=== PATIENT | male | born 1975 | race Caucasian/White ===

== ENCOUNTER 2016-05-08 01:36 | Emergency (ER) | payer BC, OTHER ==
[~2016-05-08] VITALS: Ht 185.4 cm; Wt 109.0 kg
[2016-05-08 01:40] VITALS: TEMP 36.8; Ht 185.4 cm; Wt 109.0 kg
[2016-05-08 01:53] VITALS: O2SAT 99
[2016-05-08] MEDS ORDERED: SODIUM CHLORIDE 0.9% 1000ML 1,000 ML IV STA (02:09)
[2016-05-08] MEDS ORDERED: ALUMINUM/MAGNESIUM SUSP 30 ML UDC PO STA (02:09)
[2016-05-08] MEDS ORDERED: LIDOCAINE HCL 2% VISC SOLN 20 ML UDC PO STA (02:09)
[2016-05-08] MEDS ORDERED: OPTIRAY 320 IV PRN (02:15)
[2016-05-08 02:20] LABS: BASO % 0.2 %; BASO ABS # 0.03 K/uL (0-0.2); COMPLETE YES; EOS % 0.4 %; HEMATOCRIT 42.9 % (42-52); IG% 0.2 %; LYMPH ABS # 2.53 K/uL (1.2-3.4); MEAN CELL VOLUME 86.1 fL (80-100); MEAN CORPUSCULAR HEMOGLOBIN 31.3 pg (25-34); MEAN CORPUSCULAR HGB CONC 36.4 g/dl (32-36); MEAN PLATELET VOLUME 9.5 fL (7.4-10.4); MONO % 4.9 %; NEUT % 76.3 %; PLATELET COUNT 283 K/uL (130-400); RED BLOOD COUNT 4.98 M/uL (4.7-6.1); WHITE BLOOD COUNT 14.02 K/uL (4.8-10.8)
[2016-05-08] MEDS ORDERED: ATOR10TA88 PO (02:21)
[2016-05-08] MEDS ORDERED: acid reflux med PO (02:23)
[2016-05-08 02:33] LABS: ISTAT CREATININE 0.9 mg/dl (0.6-1.3); ISTAT IONIZED CALCIUM 1.2 mmol/l (1.12-1.32)
[2016-05-08 02:46] LABS: ALT/SGPT 43 U/L (12-78); AST/SGOT 19 U/L (15-37); BLOOD UREA NITROGEN 15 mg/dl (7-18); BUN/CREATININE RATIO 13.7 (10-20); CALCIUM 9.2 mg/dl (8.5-10.1); CARBON DIOXIDE 27 mmol/L (21-32); CHLORIDE 104 mmol/L (98-107); GLUCOSE 108 mg/dl (70-99); POTASSIUM 3.8 mmol/L (3.5-5.1); SODIUM 141 mmol/L (136-145)
[2016-05-08 02:51] LABS: ALKALINE PHOSPHATASE 61 U/L (45-117)
--- NOTE | 2016-05-08 03:41 | EMERGENCY ROOM VISIT NOTE ---
History First contact with patient: 01:53 Chief Complaint: ABDOMINAL PAIN Stated Complaint: CHEST PAINS, ABDOMINAL PAIN Nursing Triage Summary: pt c/o left sided upper abdominal that radiates to back and nausea since 1800. pt denies SOB. pt denies v/d. pt states he ate "care home food" at 1700. pain started after eating. pain radiates from Left upper quad down to left lower quad and into R shoulder. pt denies history of same pain. Hx Reflux. pt moved bowels at 1700 and feels like he needs to go but cannot. History of Present Illness The patient is a 40 year old male who presents to the Emergency Room with complaints of epigastric left upper abdominal pain for the past few hours it as aching, ranging in severity 8 out of 10. Patient complains of nausea without vomiting or diarrhea. Patient does have a history of back reflux. He had meat with gravy and noodles at the care home. 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 Patient denies chest pain, dyspnea, fever, chills, diarrhea, radiating pain, numbness, tingling, weakness. He had an EGD last year that showed Gustafson's esophagitis and hiatal hernia. Review of Systems See HPI for pertinent positives & negatives. A total of 10 systems reviewed and were otherwise negative. Past Medical/Surgical History Acid reflux, hyperlipidemia, Gustafson's esophagitis, hiatal hernia Social History Smoking Status: Never Smoker Smokeless Tobacco Use: No Alcohol Use: occasionally Drug Use: none Marital Status: Housing Status: lives with family Occupation Status: employed Current/Historical Medications Scheduled Atorvastatin (Lipitor), Unknown Dose PO DAILY [acid reflux med], 1 DOSE PO DIRECTED Allergies Coded Allergies: Cat Dander (Unverified Allergy, Intermediate, RASH, 05/08/16) NO KNOWN DRUG ALLERGIES (Verified Allergy, Unknown, ., 02/13/16) Physical Exam Vital Signs Date Time Temp Pulse Resp B/P Pulse Ox O2 Delivery O2 Flow Rate FiO2 05/08/16 02:34 86 19 135/91 98 Room Air 05/08/16 02:09 81 24 150/100 98 Room Air 05/08/16 01:56 70 05/08/16 01:53 99 Room Air 05/08/16 01:40 36.8 66 20 150/90 99 Room Air 05/08/16 01:40 100 Room Air Physical Exam VITALS: Vitals are noted on the nurse's note and reviewed by myself. Vital signs stable. GENERAL: Pleasant male who appears in pain mildly diaphoretic, nondiaphoretic, well-developed well-nourished. SKIN: The skin was without rashes, erythema, edema, or bruising. There is no tenting of the skin. Capillary reflex less than 2 seconds. HEAD: Normocephalic atraumatic. EARS: External auditory canals clear, tympanic membranes pearly bae without erythema or effusion bilaterally. EYES: Pupils equal round and reactive to light and accommodation. Conjunctivae without injection, sclerae without icterus. Extraocular movements intact. NOSE: Patent, turbinates without inflammation or discharge. MOUTH: Mucous membranes moist. Pharynx without erythema or exudate. Uvula midline. Airway patent. Tongue does not deviate. NECK: Supple without nuchal rigidity. No lymphadenopathy. No thyromegaly. Cervical spine is nontender. No JVD. HEART: Regular rate and rhythm without murmurs gallops or rubs. LUNGS: Clear to auscultation bilaterally without wheezes, rales or rhonchi. No dullness to percussion. No retractions or accessory muscle use. ABDOMEN: Positive bowel sounds x 4. Normal tympanic percussion. Soft, tender to palpation epigastric region, no CVA tenderness, without masses or organomegaly. Horan sign negative. No guarding or rebound tenderness. MUSCULOSKELETAL: No muscle atrophy, erythema, or edema noted. NEURO: Patient was alert and oriented to person place and time. Normal sensation to light and sharp touch. No focal neurological deficits. Medical Decision & Procedures Laboratory Results 05/08/16 02:00 Red Blood Count 4.98, Mean Corpuscular Volume 86.1, Mean Corpuscular Hemoglobin 31.3, Mean Corpuscular Hemoglobin Concent 36.4, Mean Platelet Volume 9.5, Neutrophils (%) (Auto) 76.3, Lymphocytes (%) (Auto) 18.0, Monocytes (%) (Auto) 4.9, Eosinophils (%) (Auto) 0.4, Basophils (%) (Auto) 0.2, Neutrophils # (Auto) 10.68, Lymphocytes # (Auto) 2.53, Monocytes # (Auto) 0.69, Eosinophils # (Auto) 0.06, Basophils # (Auto) 0.03 05/08/16 02:00 Test 05/08/16 02:00 05/08/16 02:21 White Blood Count 14.02 K/uL (4.8-10.8) Red Blood Count 4.98 M/uL (4.7-6.1) Hemoglobin 15.6 g/dL (14.0-18.0) Hematocrit 42.9 % (42-52) Mean Corpuscular Volume 86.1 fL (80-100) Mean Corpuscular Hemoglobin 31.3 pg (25-34) Mean Corpuscular Hemoglobin Concent 36.4 g/dl (32-36) Platelet Count 283 K/uL (130-400) Mean Platelet Volume 9.5 fL (7.4-10.4) Neutrophils (%) (Auto) 76.3 % Lymphocytes (%) (Auto) 18.0 % Monocytes (%) (Auto) 4.9 % Eosinophils (%) (Auto) 0.4 % Basophils (%) (Auto) 0.2 % Neutrophils # (Auto) 10.68 K/uL (1.4-6.5) Lymphocytes # (Auto) 2.53 K/uL (1.2-3.4) Monocytes # (Auto) 0.69 K/uL (0.11-0.59) Eosinophils # (Auto) 0.06 K/uL (0-0.5) Basophils # (Auto) 0.03 K/uL (0-0.2) RDW Standard Deviation 38.3 fL (36.4-46.3) RDW Coefficient of Variation 12.1 % (11.5-14.5) Immature Granulocyte % (Auto) 0.2 % Immature Granulocyte # (Auto) 0.03 K/uL (0.00-0.02) Est Creatinine Clear Calc Drug Dose 114.4 ml/min Estimated GFR () 96.1 Estimated GFR (Non- 82.9 BUN/Creatinine Ratio 13.7 (10-20) Calcium Level 9.2 mg/dl (8.5-10.1) Total Bilirubin 0.3 mg/dl (0.2-1) Direct Bilirubin < 0.1 mg/dl (0-0.2) Aspartate Amino Transf (AST/SGOT) 19 U/L (15-37) Alanine Aminotransferase (ALT/SGPT) 43 U/L (12-78) Alkaline Phosphatase 61 U/L (45-117) Troponin I < 0.015 ng/ml (0-0.045) Total Protein 8.5 gm/dl (6.4-8.2) Albumin 4.2 gm/dl (3.4-5.0) Lipase 190 U/L (73-393) Bedside Hemoglobin 16.0 g/dl (14.0-18.0) Bedside Hematocrit 47 % (42-52) Bedside Sodium 141 mEq/L (135-144) Bedside Potassium 3.9 mEq/L (3.3-5.0) Bedside Chloride 100 mEq/L (101-112) Bedside Total CO2 26 mEq/l (24-31) Anion Gap 19.0 mmol/L (16-25) Bedside Blood Urea Nitrogen 17 mg/dl (7-18) Bedside Creatinine 0.9 mg/dl (0.6-1.3) Bedside Glucose (other) 114 mg/dl (70-99) Bedside Ionized Calcium (Emilia) 1.20 mmol/l (1.12-1.32) Medications Administered Medications (Trade) Dose Ordered Sig/Boyd Route Start Time Stop Time Status Last Admin Dose Admin Lidocaine HCl (Viscous Lidocaine 2% Soln) 10 ml NOW STAT PO 05/08/16 02:09 05/08/16 02:11 DC 05/08/16 02:30 10 ML Al Hydroxide/Mg Hydroxide 30 ml 30 ml NOW STAT PO 05/08/16 02:09 05/08/16 02:11 DC 05/08/16 02:30 30 ML Sodium Chloride (Nss 1000ml) 1,000 ml @ 999 mls/hr Q1H1M STAT IV 05/08/16 02:09 05/08/16 03:09 DC 05/08/16 02:32 999 MLS/HR ED Course Prior records/ancillary studies reviewed. Triage Nursing notes reviewed. The patient's history was concerning for abdominal pain. Differential diagnosis: Etiologies such as appendicitis, dissection, cardiac, diverticulitis, PUD, biliary pathology, UTI, pancreatitis, obstruction, mesenteric ischemia, aortic pathology, infections, inflammatory bowel disease, renal colic, as well as others were entertained. Physical examination findings: As above. ER treatment provided: GI cocktail On reassessment the patient felt better. Diagnostics interpreted by me: ECG: Normal sinus, normal intervals, no acute ST-T wave changes. Impression normal sinus rhythm interpreted by myself. The labs revealed leukocytosis. Negative troponin Imaging studies: Chest x-ray with no acute consolidation, pneumothorax or free air per my interpretation Patient refused further testing. He felt better and requested to leave. He was informed that I cannot rule out any infectious, surgical or life- threatening problem without doing further diagnostic workup. Patient is refusing further workup and signed out AMA. Patient states he would return to the ER for worsening signs or symptoms. He was strongly encouraged to stay for further workup or significant family care doctor today. Patient ambulated out of the ER without difficulties. Aman charge nurse was present. Patient signed AMA paperwork. The pt informed about the findings as listed above. All questions were answered and pleased with the treatment. Return instructions were outlined and the patient was discharged in stable condition. Referral: The patient was referred back to their primary care physician for follow-up in 2 to 3 days for a recheck of the current condition. Case reviewed with my attending Medical Decision As above Impression Primary Impression: Abdominal pain Departure Information Dispostion Home / Self-Care Condition GOOD Forms Call Back Authorization, HOME CARE DOCUMENTATION FORM, IMPORTANT VISIT INFORMATION Patient Instructions My [facility] Additional Instructions You are leaving AGAINST MEDICAL ADVICE. Your risk for infection, surgical intervention and/or . Recommend that you follow-up with your family care doctor tomorrow. You may try Pepcid, Zantac or antacids for heartburn. Return to the ER for further evaluation and workup, fevers, pain, worsening signs or symptoms or as needed. Problem Qualifiers Primary Impression: Abdominal pain Abdominal location: epigastric Qualified Codes: R10.13 - Epigastric pain
[2016-05-08 03:42] VITALS: BP 135/91; PULSE 86; O2SAT 98
--- NOTE | 2016-05-08 07:39 | DIAGNOSTIC IMAGING REPORT ---
CHEST ONE VIEW PORTABLE CLINICAL HISTORY: Left-sided chest pain. COMPARISON STUDY: Chest radiograph August 02, 2005. FINDINGS: There is an azygos fissure. There is no pneumothorax or pleural effusion. There is mild left lower lung opacity. Size is normal. Mediastinal contours are normal. There is no evidence of pulmonary edema. IMPRESSION: Mild left lower lung opacity which may reflect atelectasis or minimal consolidation. Electronically signed by: Drew Boone M.D. 05/08/2016 7:37 AM Dictated Date/Time: 05/08/2016 7:37 AM
== END 2016-05-08 03:44 | disposition left against medical advice (07) ==
LOC: C.EDB 01:37 → C.EDA 03:44
DX: R10.13 Epigastric pain (principal); E78.5 Hyperlipidemia, unspecified

== ENCOUNTER → 2016-06-30 | Outpatient (CLI) | payer OTHER ==
[~2016-06-30] MED LIST: ATOR10TA82 PO; acid reflux med PO
--- NOTE | 2016-07-01 04:52 | PAP/PSG TECHNICIAN REPORT ---
[facility] Director Airport Polysomnogram Report Study name: None Report date: 07/01/2016 Study date: 06/30/2016 Referring Physician: Adolfo HUGHES M.D. Name: ANIL CUENCA Interpreting Physician: Eric Hughes M.D. Date of : 1975 Director Airport: Tristan Lamb RPSGT. Sex: Male Age: 40 StudyType: PSG Weight: 253 lbs 16.25 inches Height: 40 years, Height 6' 2" Neck Circum: BMI: 32.48 Medications: LIPITOR 10 MG, PROTONIX 40 MG Patient History PATIENT HAS HISTORY OF INSOMNINA, LOUD SNORING AND WITNESSED APNEAS. ALSO, HAS HISTORY OF DEPRESSION AND ANXIETY. HE IS HERE TODAY FOR AN EVALUATION OF SANTINO. ESS = 10 RM 5 Parameters Monitored NPSG: E1-M2, E2-M1, Fp1-M2, Fp2-M1, F3-M2, F4-M2, F4-M1, C3-M2, C4-M2, C4-M1, O1-M2, O2-M2, O2-M1, T3-M2, T4-M1, P3-M2, P4-M1, CHIN1, CHIN2, HR, EKG, Legs, PFLOW, SNOR, FLOW, CFLOW, Tidal Volume, THOR, ABDO, SpO2, PLTH, CPRESS, ETCO2 Wave, ETCO2, pH Sleep Architecture Sleep Stages Time at Lights Off 10:07:57 PM STAGES Time (min.) TST (%) Time at Lights On 4:33:27 AM Wake 121.5 -- Total Recording Time (TRT) 386.00 min. N1 36.0 14 Total Sleep Period (TSP) 287.5 min. N2 186.0 70 Total Sleep Time (TST) 264.0min. N3 3.5 1 Awake Time 122.0 min. REM 38.5 15 Wake after Sleep Onset 48.0 min. Sleep Efficiency (SE) 68 % Sleep Onset Latency (MICHAEL) 73.5 min. Number of Stage 1 Shifts None Awakenings 18 Stage Changes 58 Number of REM periods 2 REM 38.5 15 REM Latency 107.0 min. NREM 225.5 85 Body Position Analysis Supine Right Left Side Prone Vertical Total Sleep Time (min.) 275.9 44.0 41.5 85.51 0.0 0.0 Total Sleep Time (%) 68% 17% 16% 32 0% N/A% Total Sleep Time REM (min.) 0.0 24.0 14.5 None 0.0 0.0 Total Sleep Time NREM (min.) 178.5 20.0 27.0 None 0.0 0.0 Intermittent Wake (min.) 97.4 1.9 22.2 None 0.0 0.0 Total Sleep Period (%) 67% None None None None None Arousals Myoclonus (PLM) * Events Count Index Events Count Index Spontaneous 21 5 Events Awake (PLMW) 86 42.5 Respiratory 8 2.0 Events Asleep w/ Arousal (PLMA) 10 2.3 PLM 9 2 Events Asleep w/o Arousal (PLMS) 61 13.9 Snoring 9 2 Total Asleep 71 16.1 Total 46 10 Total 157 24 Respiratory Analysis * CA OA MA CH H RERA Total Count 0 0 0 0 85 0 85 Index 0.0 0.0 0.0 0 19.3 0 19.3 Mean Duration 0.0 0.0 0.0 0.00 17.2 0.0 17.2 Longest Duration 0.0 0.0 0.0 0.00 0.0 0.0 40.4 Respiratory Event Summary Total Supine ~Supine Right Left Prone REM NREM Apneas Count 0 0 0 0 0 N/A 0 0 Index 0.0 0 0 0.0 0.0 N/A 0 0 Hypopneas (4% Desat) Count 85 80 5 4 1 N/A 2 83 Index 19.3 26.9 4 5.5 1.4 N/A 3.1 22.1 Apneas & All Hypopneas Count 85 80 5 4 1 N/A 2 83 Index 19.3 27 4 5 1 N/A 3.1 22.1 Respiratory Events (Second Helper+All Hyp+RERA) Count 85 80 5 4 1 N/A 2 83 Index 19.3 27 4 5.5 1.4 N/A 3.1 22.1 Respiratory Related Arousal Count 8 80 2 2 0 N/A 0 9 Index 2.0 2 1 3 0 N/A 0 2 Snoring Analysis Supine Right Left Prone REM NREM Total Snore duration 32.9 min Snores count 1,333 126 90 N/A 4 1,545 1,549 Snore mean duration 1.3 Sec Snores index 448 172 130 N/A 6.2 411.1 352.0 TST with snoring (%) 12.5% Desaturation Event Summary: Minimum %SpO2 Event Count Mean/Min/Max Duration(sec.) Desaturation Index % Time In Bed > 90 86 23.6 / 9.5 / 60.0 34.8 38.7 86 - 90 64 20.6 / 9.5 / 56.0 16.5 60.8 81 - 85 0 N/A 0.0 0.5 76 - 80 0 N/A 0.0 0.0 71 - 75 0 N/A 0.0 0.0 66 - 70 0 N/A 0.0 0.0 61 - 65 0 N/A 0.0 0.0 56 - 60 0 N/A 0.0 0.0 51 - 55 0 N/A 0.0 0.0 < 50 0 N/A 0.0 0.0 Total REM NREM Awake <50% 0.0 min. 0.0 min. 0.0 min. 0.0 min. 51 - 60% 0.0 min. 0.0 min. 0.0 min. 0.0 min. 61 - 70% 0.0 min. 0.0 min. 0.0 min. 0.0 min. 71 - 80% 0.0 min. 0.0 min. 0.0 min. 0.0 min. 81 - 90% 234.9 min. 34.5 min. 157.9 min. 42.5 min. 91 - 100% 148.3 min. 4.0 min. 67.4 min. 76.9 min. Average 90 89 90 91 Minimum SpO2 79 85 84 79 Desaturation Event Index 15.1 3.1 23.9 3.5 # Desat. Events below 89% 90 2 83 5 Time(%) with Saturation below 89% 12.8 3.9 8.1 0.8 Time(min.) with Saturation below 89% 49.1 15.0 30.9 3.2 Time (mins) REM (mins) NREM (mins) % of TST SpO2 Below 90% 90 2 N88 43.0 SpO2 Below 88% 32 0 0 8 Heart Rate Analysis Min (bpm) Max (bpm) Average (bpm) Awake 67 132 92 NREM 73 108 86 REM 65 89 78 Overall 65 108 85 Supplemental O2 Values Minimum O2 level: None Value Start Time End Time Director Airport Comments Mr. Cuenca slept in the right, left and supine positions. No cardiac arrhythmia noted. Leg movements noted. No bruxism noted. Snoring was noted and scored as a 3 on a scale of 1 through 5. (0=no snoring, 5=snoring loud enough to be heard through a closed door or down the schmid way) Mr. Cuenca awoke to use the restroom 1 time during the night. Mr. Cuenca stated I did not sleep as well as I do when I am in my own bed. The final report will be interpreted and signed by a sleep physician. The completed physician report will then be placed in the patient medical record. Therapy (cm H2O) 0 TIB (min.) 385.5 TST (min.) 264.0 Sleep Onset (min.) 73.5 REM Onset From Sleep (min.) 107.0 Sleep Efficiency % 68 Wakefulness (%) 32 Wakefulness (min.) 122.0 NREM 1 (%) 14 NREM 1 (min.) 36.0 NREM 2 (%) 70 NREM 2 (min.) 186.0 NREM 3 (%) 1 NREM 3 (min.) 3.5 REM (%) 15 REM (min.) 38.5 # Arousals 46 Arousal Index 10 # Snore 1,549 Snore Index 352.0 AHI 19.3 AHI Supine 27 AHI Non-Supine 4 NREM AHI 22.1 REM AHI 3.1 RDI 19.3 # Obstructive Apnea 0 # Central Apnea 0 # Mixed Apnea 0 # Hypopneas 85 RERAs 0 Total Respiratory Events 85 Time Below SpO2 89% (min.) 45.9 Mean NREM SpO2 (%) 90 Mean REM SpO2 (%) 89 Mean Sleep SpO2 (%) 90 Min NREM SpO2 (%) 84 Min REM SpO2 (%) 85 Position Supine (min.) 275.9 Position Non-supine (min.) 85.5 LM Index Sleep 16.1 LM Index NREM 18.6 LM Index REM 1.6 Mean Heart Rate (bpm) 85 Min Heart Rate (bpm) 65
--- NOTE | 2016-07-08 22:32 | POLYSOMNOGRAPH REPORT ---
REFERRING PERSON: Eric Hughes MD CERTIFIED FORKLIFT OPERATOR: Tristan Lamb Mr. Cuenca is a 40-year-old male with insomnia, loud snoring and witnessed apneas. He does have a history of mood disorder. He was sent to the sleep lab to rule out sleep disordered breathing. His [place] sleepiness scale score on the evening of this study is 10. BMI is 32.48. Following the technical and digital specifications of the [place] [employer] (AASM) a standard diagnostic polysomnogram was performed monitoring EEG, EOG, EMG (chin and leg deviations), oxygen saturation, body position, digital video, respiratory effort and airflow. The sleep Stage and event scoring was based on the AASM Manual for the Scoring of Sleep and Associated Events 2007 edition. Apneas are defined as a drop in the peak thermal sensor excursion by >90% of baseline for at least 10 seconds. Hypopneas were scored using the 4% oxygen desaturation rule (4A-[employer]ic[employer]) and a decrease in the nasal pressure excursions by >30% of baseline for at least 10 seconds. Respiratory effort-related arousal (RERA's) is defined as a sequence of breaths lasting at least 10 seconds characterized by increasing respiratory effort or flattening of the nasal pressure waveform leading to an arousal from sleep when the sequence of breaths does not meet criteria for an apnea or hypopnea. Apnea Hypopnea index (AHI) is defined as the number of apneas and hypopneas occurring in an hour of sleep. Respiratory disturbance index (RDI) is defined as the number of apneas, hypopneas, and RERA's occurring in an hour of sleep. Mr. Cuenca's total sleep period time was 287.5 minutes. Total sleep time was 264 minutes. Sleep efficiency was 68%. Latency to sleep onset was prolonged at 73.5 minutes with wake after sleep onset of 48 minutes. Total non-REM sleep time was 225.5 minutes. He spent 14% of that time in N1 sleep, 70% in N2 sleep and 1% in N3 sleep. REM latency was 107 minutes. Total REM sleep time was 38.5 minutes or 15% of total sleep time. There were 46 cortical arousals from sleep; 21 of these arousals were spontaneous, 8 were due to respiratory events, 9 due to periodic limb movements of sleep and 9 were due to snoring. There were 71 periodic limb movements noted on this test. Limb movement index was 16.1. Limb movement with arousal index was 2.3. There were no obstructive, central or mixed apneas on this test. There were 85 hypopneas. Apnea-hypopnea index was elevated and 19.3, consistent with moderately severe sleep apnea. A 1549 snoring events were recorded. Total sleep time with snoring was 12.5%. Mean saturation during sleep was 90% with desaturations with respiratory events to 79%. Saturations were less than 89% for 49.1 minutes of recorded time. This is significant nocturnal hypoxemia. There was no cardiac ectopy noted on this study. Mr. Cuenca's heart rate ranged from a low of 65 beats per minute to a high of 108 beats per minute during sleep. IMPRESSION AND PLAN: A 40-year-old male with evidence of moderately severe sleep apnea and significant nocturnal hypoxemia on this study. 1. The patient would likely benefit from positive airway pressure therapy. He should return to the sleep lab for a full night titration and then based on those results be started on equipment at home. A download from his machine can then be reviewed in 1 month; both to check compliance as well as AHI and further pressure adjustments can occur at that time. 2. Alternatively, this patient could be started on auto titrating CPAP with pressures of 5-15 cm. After a month, download can be reviewed and the patient set to optimal pressure. 3. Should this patient be unwilling or unable to tolerate CPAP therapy, he should be referred to ear, nose and throat or oral surgery/dental medicine (if appropriate) to discuss alternative treatments for sleep disorder breathing.
== END | disposition home or self-care (01) ==
LOC: C.NEUR 21:00
PROVIDERS: ATTEND Family Medicine
DX: G47.33 Obstructive sleep apnea (adult) (pediatric) (principal)

== ENCOUNTER → 2016-08-10 | Outpatient (CLI) | payer OTHER ==
[2016-08-10 10:40] LABS: HEMATOCRIT 46.2 % (42-52); MEAN CELL VOLUME 86.5 fL (80-100); MEAN CORPUSCULAR HEMOGLOBIN 30.3 pg (25-34); MEAN CORPUSCULAR HGB CONC 35.1 g/dl (32-36); MEAN PLATELET VOLUME 9.6 fL (7.4-10.4); PLATELET COUNT 279 K/uL (130-400); RED BLOOD COUNT 5.34 M/uL (4.7-6.1); WHITE BLOOD COUNT 8.73 K/uL (4.8-10.8)
[2016-08-10 11:19] LABS: BLOOD UREA NITROGEN 18 mg/dl (7-18); BUN/CREATININE RATIO 19.3 (10-20); CARBON DIOXIDE 26 mmol/L (21-32); CHLORIDE 107 mmol/L (98-107); CREATININE 0.95 mg/dl (0.60-1.40); GLUCOSE 92 mg/dl (70-99); POTASSIUM 3.9 mmol/L (3.5-5.1); SODIUM 140 mmol/L (136-145)
[2016-08-10 11:56] LABS: CALCIUM 9.4 mg/dl (8.5-10.1)
== END | disposition home or self-care (01) ==
LOC: C.LAB 10:03
PROVIDERS: ATTEND Internal Medicine
DX: R06.09 Other forms of dyspnea (principal); R94.31 Abnormal electrocardiogram [ECG] [EKG]

== ENCOUNTER → 2016-09-01 | Outpatient (CLI) | payer OTHER ==
--- NOTE | 2016-09-02 05:49 | PAP/PSG TECHNICIAN REPORT ---
[facility] Paving And Surfacing Labourer Polysomnogram Report Study name: None Report date: 09/02/2016 Study date: 09/01/2016 Referring Physician: Adolfo HUGHES M.D. Name: ANIL CUENCA Interpreting Physician: Eric Hughes M.D. Date of : 1975 Paving And Surfacing Labourer: Chante Reed RPSGT. Sex: Male Age: 40 StudyType: PSG PAP Weight: 253 lbs Height: 40 years, Height 6' 2" BMI: 32.48 Medications: LIPITOR 10 MG, PROTONIX 40 MG Patient History 40 yr. old male here for a new titration sleep study in room 6. Patients PSG was done on 06/30/16 and had an AHI of 19.3. ESS10/24. Parameters Monitored NPSG: E1-M2, E2-M1, Fp1-M2, Fp2-M1, F3-M2, F4-M2, F4-M1, C3-M2, C4-M2, C4-M1, O1-M2, O2-M2, O2-M1, T3-M2, T4-M1, P3-M2, P4-M1, CHIN1, CHIN2, HR, EKG, Legs, PFLOW, SNOR, FLOW, CFLOW, Tidal Volume, THOR, ABDO, SpO2, PLTH, CPRESS, ETCO2 Wave, ETCO2, pH Sleep Architecture Sleep Stages Time at Lights Off 10:08:22 PM STAGES Time (min.) TST (%) Time at Lights On 5:38:52 AM Wake 58.5 -- Total Recording Time (TRT) 450.50 min. N1 14.0 4 Total Sleep Period (TSP) 407.0 min. N2 270.0 69 Total Sleep Time (TST) 392.0min. N3 34.5 9 Awake Time 58.5 min. REM 73.5 19 Wake after Sleep Onset 15.0 min. Sleep Efficiency (SE) 87 % Sleep Onset Latency (MICHAEL) 43.5 min. Number of Stage 1 Shifts None Awakenings 12 Stage Changes 58 Number of REM periods 4 REM 73.5 19 REM Latency 89.0 min. NREM 318.5 81 Body Position Analysis Supine Right Left Side Prone Vertical Total Sleep Time (min.) 154.2 223.1 16.5 239.64 0.0 41.9 Total Sleep Time (%) 39% 57% 4% 61 0% N/A% Total Sleep Time REM (min.) 36.8 36.7 0.0 None 0.0 0.0 Total Sleep Time NREM (min.) 115.6 186.4 16.5 None 0.0 0.0 Intermittent Wake (min.) 1.9 3.6 11.0 None 0.0 41.9 Total Sleep Period (%) 38% None None None None None Arousals Myoclonus (PLM) * Events Count Index Events Count Index Spontaneous 7 1 Events Awake (PLMW) 56 57.4 Respiratory 1 0.2 Events Asleep w/ Arousal (PLMA) 5 0.8 PLM 5 1 Events Asleep w/o Arousal (PLMS) 92 14.1 Snoring 5 1 Total Asleep 97 14.8 Total 18 3 Total 153 20 Respiratory Analysis * CA OA MA CH H RERA Total Count 0 1 0 0 3 1 4 Index 0.0 0.2 0.0 0 0.5 0 0.8 Mean Duration 0.0 13.1 0.0 0.00 26.0 29.1 24.0 Longest Duration 0.0 13.1 0.0 0.00 0.0 29.1 39.5 Respiratory Event Summary Total Supine ~Supine Right Left Prone REM NREM Apneas Count 1 0 1 1 0 N/A 0 1 Index 0.2 0 0 0.3 0.0 N/A 0 0 Hypopneas (4% Desat) Count 3 3 0 0 0 N/A 2 1 Index 0.5 1.2 0 0.0 0.0 N/A 1.6 0.2 Apneas & All Hypopneas Count 4 3 1 1 0 N/A 2 2 Index 0.6 1 0 0 0 N/A 1.6 0.4 Respiratory Events (Pig Iron Loader+All Hyp+RERA) Count 4 4 1 1 0 N/A 2 2 Index 0.8 2 0 0.3 0.0 N/A 1.6 0.6 Respiratory Related Arousal Count 1 4 0 0 0 N/A 0 1 Index 0.2 0 0 0 0 N/A 0 0 Snoring Analysis Supine Right Left Prone REM NREM Total Snore duration 23.9 min Snores count 496 576 68 N/A 101 1,039 1,140 Snore mean duration 1.3 Sec Snores index 195 155 247 N/A 82.4 195.7 174.5 TST with snoring (%) 6.1% Desaturation Event Summary: Minimum %SpO2 Event Count Mean/Min/Max Duration(sec.) Desaturation Index % Time In Bed > 90 11 33.7 / 14.3 / 56.0 1.5 99.1 86 - 90 0 N/A 0.0 0.9 81 - 85 0 N/A 0.0 0.0 76 - 80 0 N/A 0.0 0.0 71 - 75 0 N/A 0.0 0.0 66 - 70 0 N/A 0.0 0.0 61 - 65 0 N/A 0.0 0.0 56 - 60 0 N/A 0.0 0.0 51 - 55 0 N/A 0.0 0.0 < 50 0 N/A 0.0 0.0 Total REM NREM Awake <50% 0.0 min. 0.0 min. 0.0 min. 0.0 min. 51 - 60% 0.0 min. 0.0 min. 0.0 min. 0.0 min. 61 - 70% 0.0 min. 0.0 min. 0.0 min. 0.0 min. 71 - 80% 0.0 min. 0.0 min. 0.0 min. 0.0 min. 81 - 90% 3.9 min. 3.1 min. 0.8 min. 0.0 min. 91 - 100% 446.5 min. 70.4 min. 317.7 min. 58.4 min. Average 93 93 93 94 Minimum SpO2 87 87 90 91 Desaturation Event Index 1.5 2.4 0.8 5.1 # Desat. Events below 89% N/A N/A N/A N/A Time(%) with Saturation below 89% 0.1 0.1 0.0 0.0 Time(min.) with Saturation below 89% 0.6 0.6 0.0 0.0 Time (mins) REM (mins) NREM (mins) % of TST SpO2 Below 90% 2 1 N1 0.4 SpO2 Below 88% 0 0 0 0 Heart Rate Analysis Min (bpm) Max (bpm) Average (bpm) Awake 65 105 84 NREM 62 99 76 REM 60 92 74 Overall 60 99 76 Supplemental O2 Values Minimum O2 level: None Value Start Time End Time Paving And Surfacing Labourer Comments Mr. Cuenca slept in the right and supine positions. No cardiac arrhythmia or PLMs noted. No bruxism noted. CPAP was initiated at +4 CMH2O room air and up-titrated to an optimal level of +9 CMH2O Cflex 2, which nearly eliminated all respiratory events and snoring. A large [employer] Simplus , was used during titration. Mr. Cuenca did not wake to use the restroom during the night. Mr. Cuenca stated, I slept okay. The final report will be interpreted and signed by a sleep physician. The completed physician report will then be placed in the patient medical record. Therapy Event: Therapy (cm H20) 4 5 6 7 8 9 Total Time at Pressure (min.) 79.1 49.0 29.6 159.2 83.4 50.1 TST at Pressure (min.) 26.2 49.0 28.6 157.7 82.4 48.1 # Periods 1 1 1 1 1 1 Sleep Onset (min.) 43.4 0.0 0.0 0.0 0.0 0.0 REM Onset (min.) N/A N/A 4.3 32.2 56.5 N/A Sleep Efficiency % 33 100 96 99 98 96 Wakefulness (%) 66.9 0.0 3.4 0.9 1.2 4.0 Wakefulness (min.) 52.9 0.0 1.0 1.5 1.0 2.0 NREM 1 (%) 10.1 0.0 3.4 1.6 1.2 3.0 NREM 1 (min.) 8.0 0.0 1.0 2.5 1.0 1.5 NREM 2 (%) 23.0 56.2 71.3 62.6 68.2 93.0 NREM 2 (min.) 18.2 27.5 21.1 99.7 56.9 46.6 NREM 3 (%) 0.0 43.8 0.0 8.2 0.0 0.0 NREM 3 (min.) 0.0 21.5 0.0 13.0 0.0 0.0 REM (%) 0.0 0.0 22.0 26.7 29.4 0.0 REM (min.) 0.0 0.0 6.5 42.5 24.5 0.0 # Arousals 5 2 0 8 2 1 Arousal Index 11.5 2.4 0.0 3.0 1.5 1.2 # Snore 151 406 187 254 132 10 Snore Index 345.9 496.7 392.2 96.7 96.1 12.5 AHI 2.3 0.0 0.0 0.8 0.7 0.0 AHI Supine N/A N/A 0.0 2.2 0.7 0.0 AHI Non-Supine 2.3 0.0 0.0 0.0 N/A 0.0 NREM AHI 2.3 0.0 0.0 0.0 1.0 0.0 REM AHI N/A N/A 0.0 2.8 0.0 N/A RDI 2.3 0.0 0.0 1.1 0.7 0.0 # Obstructive 1 0 0 0 0 0 # Central Ap 0 0 0 0 0 0 # Mixed 0 0 0 0 0 0 # Hypopneas 0 0 0 2 1 0 RERAS 0 0 0 1 0 0 Total Respiratory Events 1 0 0 3 1 0 Time Below SpO2 89.00% (min.) 0.0 0.0 0.0 0.6 0.0 0.0 Mean NREM SpO2 (%) 93 92 93 94 93 94 Mean REM SpO2 (%) N/A N/A 92 93 93 N/A Mean Sleep SpO2 (%) 93 92 93 94 93 94 Min NREM SpO2 (%) 90 90 91 91 90 91 Min REM SpO2 (%) N/A N/A 91 87 91 N/A Position Supine (min.) 0.0 0.0 14.4 55.0 82.4 0.5 Position Non-supine (min.) 26.2 49.0 14.2 102.7 0.0 47.5 LM Index Sleep 18.3 17.1 18.9 3.8 40.0 1.2 LM Index NREM 18.3 17.1 10.9 2.1 48.7 1.2 LM Index REM N/A N/A 46.2 8.5 19.6 N/A Mean Heart Rate (bpm) 80 82 84 75 73 71 Min Heart Rate (bpm) 74 76 76 60 62 66
--- NOTE | 2016-09-10 15:29 | POLYSOMNOGRAPH REPORT ---
REFERRING PERSON: Dr. Tejas Hughes. PIECE JOBBER: Chante Reed. Mr. Cuenca is a 40-year-old male sent for CPAP titration study. He was diagnosed with SANTINO on 06/30/2016. AHI at that time was 19.3. His [place] sleepiness scale score on the evening of this study is 10. BMI is 32.48. Following the technical and digital specifications of the [employer] (AASM) a standard diagnostic polysomnogram was performed monitoring EEG, EOG, EMG (chin and leg deviations), oxygen saturation, body position, digital video, respiratory effort and airflow. The sleep Stage and event scoring was based on the AASM Manual for the Scoring of Sleep and Associated Events 2007 edition. Apneas are defined as a drop in the peak thermal sensor excursion by >90% of baseline for at least 10 seconds. Hypopneas were scored using the 4% oxygen desaturation rule (4A-Medicare) and a decrease in the nasal pressure excursions by >30% of baseline for at least 10 seconds. Respiratory effort-related arousal (RERA's) is defined as a sequence of breaths lasting at least 10 seconds characterized by increasing respiratory effort or flattening of the nasal pressure waveform leading to an arousal from sleep when the sequence of breaths does not meet criteria for an apnea or hypopnea. Apnea Hypopnea index (AHI) is defined as the number of apneas and hypopneas occurring in an hour of sleep. Respiratory disturbance index (RDI) is defined as the number of apneas, hypopneas, and RERA's occurring in an hour of sleep. Ms. Hayss total sleep period time was 407 minutes. Total sleep time was 392 minutes. Sleep efficiency was 87%. Latency to sleep onset was 43.5 minutes. Wake after sleep onset was 15 minutes. Total non-REM sleep time was 318.5 minutes. He spent 4% of that time in N1 sleep, 69% in N2 sleep and 9% in N3 sleep. REM latency was 89 minutes. Total REM sleep time was 73.5 minutes or 19% of total sleep time. There were 18 cortical arousals from sleep. Five of these arousals were due to snoring, 5 due to periodic limb movements of sleep and 1 due to a respiratory event and the remaining 7 were spontaneous. There were 97 periodic limb movements noted on this test. Limb movement index was 14.8 and limb movement with arousal index was 0.8. There were no central, 1 obstructive and no mixed apneas on this test. There were 3 hypopneas and 1 RERA. Apnea-hypopnea index was normal at 0.6. There were 1140 snoring events recorded. Total sleep time with snoring was 6.1%. Mean saturation was 93% with desaturations to 87%. Saturations were less than 89% for 0.6 minutes of recorded time. There was no cardiac ectopy noted on this study. Heart rates ranged from a low of 60 beats per minute to a high of 99 beats per minute on this titration. Mr. Fernandez chose a large [employer] full facemask for his titration. He was titrated from a CPAP pressure of 4 to a CPAP pressure of 9 over the course of the night. Increasing pressures were needed to prevent apneas, hypopneas, arousals, and snoring. He was observed on a pressure of 7 for 157.7 minutes of recorded time. There were 42.5 minutes of supine REM sleep. AHI and RDI on this pressure were 0.8 and 1.1 and there were saturations less than 89% for only 0.6 minutes of recorded time on that pressure. His pressures were increased to 8 and then to 9 due to snoring. IMPRESSION AND PLAN: A 40-year-old male with moderately severe sleep apnea, who does well on CPAP therapy. I think he could be started on CPAP at a pressure of 7. A download from his machine can be reviewed in 1 month both to check compliance as well as AHI and further pressure adjustments can occur at that time. Should snoring be bothersome on CPAP ____, then the pressures can be titrated for snoring, but his sleep disordered breathing appeared to be well controlled on a pressure of 7.
== END | disposition home or self-care (01) ==
LOC: C.NEUR 20:00
PROVIDERS: ATTEND Family Medicine
DX: G47.33 Obstructive sleep apnea (adult) (pediatric) (principal)

== ENCOUNTER 2018-06-14 21:42 | Inpatient (IN) ==
[2018-06-14] MEDS ORDERED: MoRPHine SULFATE 4 MG/ML 1 ML CARP\\VIAL IV STA (22:17)
[2018-06-14] MEDS ORDERED: ONDANSETRON INJ 2 MG/ML 2 ML VIAL IV STA (22:17)
[2018-06-14] MEDS ORDERED: SODIUM CHLORIDE 0.9% 1000ML 1,000 ML IV SCH (22:30)
[2018-06-14 22:46] LABS: Basophils # (auto) 0.02 K/uL (0-0.2); Basophils % (auto) 0.2 %; Eosinophils # (auto) 0.04 K/uL (0-0.5); Eosinophils % (auto) 0.4 %; Hematocrit (blood only) 43.1 % (42-52); Hemoglobin 15.7 g/dL (14.0-18.0); Immature Granulocytes # (auto) 0.02 K/uL (0.00-0.02); Immature Granulocytes % (auto) 0.2 %; Lymphocytes # (auto) 2.42 K/uL (1.2-3.4); Lymphocytes % (auto) 23.7 %; Mean Corpuscular Hgb Conc 36.4 g/dL (32-36); Mean Corpuscular Volume 85.7 fL (80-100); Mean Platelet Volume 9.7 fL (7.4-10.4); Monocytes # (auto) 1.37 K/uL (0.11-0.59); Monocytes % (auto) 13.4 %; Neutrophils # (auto) 6.32 K/uL (1.4-6.5); Neutrophils % (auto) 62.1 %; Platelet Count 236 K/uL (130-400); RDW Standard Deviation 37.8 fL (36.4-46.3); Red Blood Count 5.03 M/uL (4.7-6.1); White Blood Count 10.19 K/uL (4.8-10.8)
--- NOTE | 2018-06-14 22:46 | XRay Report ---
SINGLE VIEW CHEST CLINICAL HISTORY: Atypical chest pain. FINDINGS: An AP, portable, upright chest radiograph is compared to study dated 12/12/2017. The examina tion is degraded by portable technique and patient rotation. The cardiomediastinal silhouette is un remarkable. Linear opacities are present at both lung bases, left greater than right and likely repre sent atelectasis. No large pleural effusion or pneumothorax is seen. The bony thorax is grossly intac t. IMPRESSION: Linear bibasilar opacities likely represent atelectasis. Correlate clinically for evidenc e of a superimposed infectious/inflammatory pneumonitis. Electronically signed by: Bharathi Garcia M.D. 06/14/2018 10:44 PM
[2018-06-14 22:55] LABS: iSTAT Creatinine 0.9 mg/dl (0.6-1.3); iSTAT Ionized Calcium 1.16 mmol/l (1.12-1.32); iSTAT Potassium 3.9 mEq/L (3.3-5.0)
[2018-06-14 23:03] LABS: Alanine Aminotransferase 39 U/L (12-78); Albumin Level 3.6 gm/dl (3.4-5.0); Aspartate Aminotransferase 21 U/L (15-37); BUN Creatinine Ratio 19.3 (10-20); Blood Urea Nitrogen 19 mg/dl (7-18); Calcium 8.6 mg/dl (8.5-10.1); Carbon Dioxide 23 mmol/L (21-32); Chloride 107 mmol/L (98-107); Est GFR (Non-African American) 94.1; Glucose 99 mg/dl (70-99); Potassium 3.9 mmol/L (3.5-5.1); Sodium 138 mmol/L (136-145)
[2018-06-14 23:08] LABS: Albumin Globulin Ratio 0.7 (0.9-2); Alkaline Phosphatase 59 U/L (45-117); Bilirubin,Total 0.3 mg/dl (0.2-1); Creatine Kinase 90 U/L (39-308); Globulin 4.8 gm/dl (2.5-4.0); Total Protein 8.4 gm/dl (6.4-8.2); Troponin I < 0.015 ng/ml (0-0.045)
[2018-06-14] MEDS ORDERED: OPTIRAY 320 125ml IV PRN (23:55)
[2018-06-15] MEDS ORDERED: AZITHROMYCIN 250 MG TAB PO ONE (00:14)
[2018-06-15] MEDS ORDERED: cefTRIAXone SODIUM 1,000 MG/50 ML BAG IV STA (00:14)
[2018-06-15] MEDS ORDERED: HEPARIN SOD 5,000 UNIT/0.5 ML VIAL ONE (02:28)
[2018-06-15] MEDS ORDERED: HEPARIN 25000 UNIT/500 ML D5W IV ONE (02:28)
[2018-06-15] MEDS ORDERED: HEPARIN STANDARD DEXTROSE 25,000 UNITS/500 ML IV SCH (02:45)
[2018-06-15] MEDS ORDERED: MoRPHine SULFATE 2 MG/ML CARP IV PRN (03:33)
[2018-06-15] MEDS ORDERED: DOCUSATE SODIUM 100 MG CAP PO PRN (03:33)
[2018-06-15] MEDS ORDERED: ONDANSETRON INJ 2 MG/ML 2 ML VIAL IV PRN (03:33)
[2018-06-15] MEDS ORDERED: HEPARIN DRIP~STOP ORDER ONE (04:00)
[2018-06-15] MEDS: RIVAROXABAN 15 MG TAB PO SCH ×2 (04:06→18:37)
--- NOTE | 2018-06-15 04:18 | History & Physical Report ---
Date of Service June 15, 2018 Assessment & Plan (1) Pulmonary embolism: Acute PE with pulmonary infarct, significant pleuritic CP requiring IV narcotics. ? if provoked with recent period of immobility d/t illness. Patient tachycardic but reports that his HR is always in high 90s. BP stable. BL LE dopplers negative. -Observation with telemetry monitoring -Xarelto 15mg po BID x 21 d then 20mg po daily -Patient should not take his Ibuprofen while on Xarelto Present on Admission?: Yes (2) Anxiety: Patient reports longstanding history of feeling anxious. He has never seen psychiatry for this issue but would like to in the future. -Hydroxyzine 50mg po q 6 hours PRN anxiety. Patient may be discharged on this medication to use until he can followup with his PCP and Psychiatry Present on Admission?: Yes (3) GERD (gastroesophageal reflux disease): Patient is followed by GI for routine EGDs. -Continue Protonix 40mg po daily F/E/N - Heplock. Monitor electrolytes and replete as needed. Regular diet as tolerated Ppx - Xarelto as above Code - Full Dispo - Observation to medical floor with tele History of Present Illness Chief Complaint: Pleuritic CP Primary Care Provider: Elen Perez MD 42yo C male with history of GERD with Gustafson esophagus, SANTINO, presenting with acute left sided pleuritic CP that started suddenly on 06/14. Pain is mostly po sterior thoracic, 10/10 in severity. CTA with left sided PE with pulmonary infarct. Also with small effusion and patchy infiltrate in RUL. Patient with no personal or family history of DVT/PE. No recent surgery or trauma. He was recently sick with a viral illness and reports spending a lot of time in bed. Presently he states that he feels very anxious. Also with left sided CP/pleuritic, unable to take full breaths secondary to pain. Also complaining of feeling dizzy and lightheaded which started yesterday as well. ER Course: Azithromycin, Ceftriaxone, Heparin gtt, Morphine 4mg IV, Zofran 4mg IV Allergies Allergy/AdvReac Type Severity Reaction Status Date / Time cat dander Allergy Intermediate RASH Unverified 06/14/18 22:57 No Known Drug Allergies Allergy Unknown . Verified 06/14/18 22:57 Home Medications Home Medications Medication Instructions Recorded Confirmed Type pantoprazole [Protonix] 40 mg PO DAILY 01/28/18 06/14/18 History cholestyramine (with sugar) 1 dose PO DAILY 06/14/18 06/14/18 History msidqcyhxz-EJ-FR-acetaminophen 1 dose PO UD PRN 06/14/18 06/14/18 History [Vicks DayQuil-NyQuil Cold-Flu] ibuprofen 600 mg PO QID PRN 06/14/18 06/14/18 History Past Med/Surg History Medical History Anxiety GERD (gastroesophageal reflux disease) SANTINO on CPAP Surgical History S/P laparoscopic cholecystectomy History of esophagogastroduodenoscopy (EGD) Social History Preferred Language: Kyrgyz Communication Ability: Effective Beliefs That Will Affect Care: None Current Living Situation: Alone Other Information That Helps Us Care for You: No Feels Safe at Home: Yes Safety Concerns: Feels Safe At This Time Smoking Status: Light tobacco smoker Hx Alcohol Use: Yes Hx Substance Use: No Review of Systems All systems reviewed & are unremarkable except as noted in HPI & below +mild headache +dizziness Physical Exam Vital Signs (Past 24 Hours): Last Vital Signs Temp 37.7 C H 06/15/18 03:35 Pulse 96 H 06/15/18 03:35 Resp 20 06/15/18 03:35 BP 145/91 H 06/15/18 03:35 Pulse Ox 95 06/15/18 03:35 Physical Exam: General: patient resting comfortably, NAD, non-toxic in appearance, AA&O x 4, anxious Skin: warm, dry, intact, no rashes or lesions HEENT: NC/AT, PERRL, EOMI, anicteric sclera, conjunctiva without injection, external ear normal to inspection and nontender, nares patent, moist mucus membranes, dentition intact, no oropharyngeal lesions, neck supple, trachea midline, no LAD, no thyromegaly, no JVD Heart: +S1/S2, regular, tachycardic, no m/r/g Lungs: equal air entry bilaterally, no rales/rhonchi/wheezes, splinting secondary to left sided chest pain Abd: +BS, soft, NT/ND, no masses/organomegaly/ascites Ext: warm, 2+ pulses in UE/LE bilaterally, no clubbing/cyanosis or edema, nontender Neuro: nonfocal, patient AA&O x 4, speech intact, no facial droop, moving all extremities on command with equal strength 5/5 Results & Data Laboratory Results Lab Results 06/14/18 06/14/18 06/14/18 Range/Units 22:30 22:30 22:36 WBC 10.19 (4.8-10.8) K/uL RBC 5.03 (4.7-6.1) M/uL Hgb 15.7 (14.0-18.0) g/dL POC Hgb (14.0-18.0) g/dl Hct 43.1 (42-52) % POC Hct (42-52) % MCV 85.7 (80-100) fL MCH 31.2 (25-34) pg MCHC 36.4 H (32-36) g/dL RDW Std Deviation 37.8 (36.4-46.3) fL RDW Coeff of Bo 12.0 (11.5-14.5) % Plt Count 236 (130-400) K/uL MPV 9.7 (7.4-10.4) fL Immature Gran % (Auto) 0.2 % Neut % (Auto) 62.1 % Lymph % (Auto) 23.7 % [place] % (Auto) 13.4 % Eos % (Auto) 0.4 % Baso % (Auto) 0.2 % Immature Gran # (Auto) 0.02 (0.00-0.02) K/uL Neut # (Auto) 6.32 (1.4-6.5) K/uL Lymph # (Auto) 2.42 (1.2-3.4) K/uL [place] # (Auto) 1.37 H (0.11-0.59) K/uL Eos # (Auto) 0.04 (0-0.5) K/uL Baso # (Auto) 0.02 (0-0.2) K/uL POC D-Dimer > 450 H* (0-450) ng/mlFEU POC Sodium (135-144) mEq/L Sodium 138 (136-145) mmol/L POC Potassium (3.3-5.0) mEq/L Potassium 3.9 (3.5-5.1) mmol/L POC Chloride (101-112) mEq/L Chloride 107 (98-107) mmol/L Carbon Dioxide 23 (21-32) mmol/L POC Total CO2 (24-31) mEq/l Anion Gap 8.0 (3-11) POC Anion Gap (16-25) mmol/L POC BUN (7-18) mg/dl BUN 19 H (7-18) mg/dl Creatinine 0.98 (0.6-1.4) mg/dl POC Creatinine (0.6-1.3) mg/dl Est Cr Clr Drug Dosing 130.0 ml/min Est GFR ( Amer) 109.0 Est GFR (Non-Af Amer) 94.1 BUN/Creatinine Ratio 19.3 (10-20) Glucose 99 (70-99) mg/dl POC Glucose (other) (70-99) mg/dl POC Lactic Acid Toño (0.90-1.70) mmol/L Calcium 8.6 (8.5-10.1) mg/dl POC Ioniz Calcium [place] (1.12-1.32) mmol/l Total Bilirubin 0.3 (0.2-1) mg/dl AST 21 (15-37) U/L ALT 39 (12-78) U/L Alkaline Phosphatase 59 (45-117) U/L Total Creatine Kinase 90 (39-308) U/L POC Troponin I < 0.03 (0-0.045) ng/ml Troponin I < 0.015 (0-0.045) ng/ml Total Protein 8.4 H (6.4-8.2) gm/dl Albumin 3.6 (3.4-5.0) gm/dl Globulin 4.8 H (2.5-4.0) gm/dl Albumin/Globulin Ratio 0.7 L (0.9-2) Lipase 126 (73-393) U/L 06/14/18 06/14/18 Range/Units 22:38 22:42 WBC (4.8-10.8) K/uL RBC (4.7-6.1) M/uL Hgb (14.0-18.0) g/dL POC Hgb 15.0 (14.0-18.0) g/dl Hct (42-52) % POC Hct 44 (42-52) % MCV (80-100) fL MCH (25-34) pg MCHC (32-36) g/dL RDW Std Deviation (36.4-46.3) fL RDW Coeff of Bo (11.5-14.5) % Plt Count (130-400) K/uL MPV (7.4-10.4) fL Immature Gran % (Auto) % Neut % (Auto) % Lymph % (Auto) % [place] % (Auto) % Eos % (Auto) % Baso % (Auto) % Immature Gran # (Auto) (0.00-0.02) K/uL Neut # (Auto) (1.4-6.5) K/uL Lymph # (Auto) (1.2-3.4) K/uL [place] # (Auto) (0.11-0.59) K/uL Eos # (Auto) (0-0.5) K/uL Baso # (Auto) (0-0.2) K/uL POC D-Dimer (0-450) ng/mlFEU POC Sodium 139 (135-144) mEq/L Sodium (136-145) mmol/L POC Potassium 3.9 (3.3-5.0) mEq/L Potassium (3.5-5.1) mmol/L POC Chloride 104 (101-112) mEq/L Chloride (98-107) mmol/L Carbon Dioxide (21-32) mmol/L POC Total CO2 21 L (24-31) mEq/l Anion Gap (3-11) POC Anion Gap 19.0 (16-25) mmol/L POC BUN 18 (7-18) mg/dl BUN (7-18) mg/dl Creatinine (0.6-1.4) mg/dl POC Creatinine 0.9 (0.6-1.3) mg/dl Est Cr Clr Drug Dosing ml/min Est GFR ( Amer) Est GFR (Non-Af Amer) BUN/Creatinine Ratio (10-20) Glucose (70-99) mg/dl POC Glucose (other) 104 H (70-99) mg/dl POC Lactic Acid Toño 0.91 (0.90-1.70) mmol/L Calcium (8.5-10.1) mg/dl POC Ioniz Calcium [place] 1.16 (1.12-1.32) mmol/l Total Bilirubin (0.2-1) mg/dl AST (15-37) U/L ALT (12-78) U/L Alkaline Phosphatase (45-117) U/L Total Creatine Kinase (39-308) U/L POC Troponin I (0-0.045) ng/ml Troponin I (0-0.045) ng/ml Total Protein (6.4-8.2) gm/dl Albumin (3.4-5.0) gm/dl Globulin (2.5-4.0) gm/dl Albumin/Globulin Ratio (0.9-2) Lipase (73-393) U/L Diagnostic Findings [facility], [place] [phone] XRay Report 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 FINDINGS: An AP, portable, upright chest radiograph is compared to study dated 12/12/2017. The examination is degraded by portable technique and patient rotation. The cardiomediastinal silhouette is unremarkable. Linear opacities are present at both lung bases, left greater than right and likely represent atelectasis. No large pleural effusion or pneumothorax is seen. The bony thorax is grossly intact. IMPRESSION: Linear bibasilar opacities likely represent atelectasis. Correlate c linically for evidence of a superimposed infectious/inflammatory pneumonitis. Electronically signed by: Bharathi Garcia M.D. 06/14/2018 10:44 PM Dictated: [id number] Transcribed: 06/[id number] Vidhi LE doppler - NEGATIVE FOR DVT CTA - small left basilar pulmonary embolism with infarct. Patchy airspace disease ECG Additional Comments: Sinus tachycardia, no acute ischemic changes. No evidence of RV strain. Has TWI in III and q wave in III Code Status & VTE Plan Code Status FULL VTE Prophylaxis Plan VTE Prophylaxis will be ordered: Yes Critical Care Time Critical Care Time: No (1) Pulmonary embolism Pulmonary embolism type: unspecified Chronicity: acute Acute cor pulmonale presence: without acute cor pulmonale Qualified Code(s): I26.99 - Other pulmonary embolism without acute cor pulmonale (2) GERD (gastroesophageal reflux disease) Esophagitis presence: with esophagitis Qualified Code(s): K21.0 - Gastro- esophageal reflux disease with esophagitis
--- NOTE | 2018-06-15 05:22 | Emergency Department Note ---
History of Present Illness General Chief complaint: Flank Pain Stated complaint: SHOULDER AND KIDNEY PAIN, PINCHED NERVE Time Seen by Provider: 06/14/18 22:12 History of Present Illness Maximum Pain Intensity: 6 This 42-year-old presents to the ER complaining of left flank and left upper back pain Location: Left-sided back and chest Quality: Aching Severity: Moderate Duration: Today Timing: Today Context: Patient was concerned and came in Modifying factors: better with nothing; worse with breathing Patient denies chest pain, abdominal pain, leg pain or swelling, radiating pain, fever, chills, flulike illness. He does chew tobacco. No recent travel. No history of heart disease or blood clots. Patient states it is hard for him to catch his breath. Home Medications Home Medications Medication Instructions Recorded Confirmed Type pantoprazole [Protonix] 40 mg PO DAILY 01/28/18 06/14/18 History cholestyramine (with sugar) 1 dose PO DAILY 06/14/18 06/14/18 History zqarulqywi-PV-NP-acetaminophen 1 dose PO UD PRN 06/14/18 06/14/18 History [Vicks DayQuil-NyQuil Cold-Flu] ibuprofen 600 mg PO QID PRN 06/14/18 06/14/18 History Allergies Allergy/AdvReac Type Severity Reaction Status Date / Time cat dander Allergy Intermediate RASH Unverified 06/14/18 22:57 No Known Drug Allergies Allergy Unknown . Verified 06/14/18 22:57 Past Med/Surg History Medical History Anxiety GERD (gastroesophageal reflux disease) SANTINO on CPAP Surgical History S/P laparoscopic cholecystectomy History of esophagogastroduodenoscopy (EGD) Family History Other Heart attack Social History Preferred Language: Georgian Communication Ability: Effective Beliefs That Will Affect Care: None Current Living Situation: Alone Other Information That Helps Us Care for You: No Feels Safe at Home: Yes Safety Concerns: Feels Safe At This Time Smoking Status: Light tobacco smoker Hx Alcohol Use: Yes Hx Substance Use: No Review of Systems All systems reviewed & are unremarkable except as noted in HPI & below Physical Exam Vital Signs Vital Signs - 24 hr 06/14/18 21:44 06/14/18 22:20 06/14/18 23:51 Temperature 36.6 C Temperature Source Oral Sepsis Recent Fever Within 48 Hours No Sepsis New/Unexplained Change in Mental Status No Sepsis Action Taken by Nursing No Action Required Pulse Rate 125 H Pulse Rate [Bilateral] 96 H Pulse Rhythm [Bilateral] Regular Pulse Strength [Bilateral] Normal Respiratory Rate 20 20 Respiratory Effort / Characteristics Spontaneous Short of Breath Respiratory Depth Normal Respiratory Pattern Regular Blood Pressure 157/90 H Blood Pressure [Left Arm] 143/120 H Blood Pressure Mean 112 Blood Pressure Mean [Left Arm] 127 Blood Pressure Position [Left Arm] Sitting Pulse Oximetry 97 95 97 Oxygen Delivery Method Room Air Room Air 06/15/18 02:33 06/15/18 03:35 Temperature 37.7 C H Temperature Source Oral Sepsis Recent Fever Within 48 Hours Sepsis New/Unexplained Change in Mental Status Sepsis Action Taken by Nursing Pulse Rate Pulse Rate [Bilateral] 100 H 96 H Pulse Rhythm [Bilateral] Regular Pulse Strength [Bilateral] Normal Respiratory Rate 16 20 Respiratory Effort / Characteristics Non-Labored Spontaneous Non-Labored Spontaneous SOB on Exertion Respiratory Depth Normal Normal Respiratory Pattern Regular Regular Blood Pressure Blood Pressure [Left Arm] 155/104 H 145/91 H Blood Pressure Mean Blood Pressure Mean [Left Arm] 121 109 Blood Pressure Position [Left Arm] Lying Lying Pulse Oximetry 94 95 Oxygen Delivery Method Room Air Room Air VITALS: Vitals are noted on the nurse's note and reviewed by myself. Vital signs tachycardic. GENERAL: White male, in no acute distress, nondiaphoretic, well-developed well- nourished. SKIN: The skin was without rashes, erythema, edema, or bruising. There is no tenting of the skin. Capillary reflex less than 2 seconds. HEAD: Normocephalic atraumatic. EARS: External auditory canals clear, tympanic membranes pearly bae without erythema or effusion bilaterally. EYES: Pupils equal round and reactive to light and accommodation. Conjunctivae without injection, sclerae without icterus. Extraocular movements intact. NOSE: Patent, turbinates without inflammation or discharge. MOUTH: Mucous membranes moist. Pharynx without erythema or exudate. Uvula midline. Airway patent. Tongue does not deviate. NECK: Supple without nuchal rigidity. No lymphadenopathy. No thyromegaly. Cervical spine is nontender. No JVD. HEART: Regular rate and rhythm without murmurs gallops or rubs. LUNGS: Clear to auscultation bilaterally without wheezes, rales or rhonchi. No retractions or accessory muscle use. ABDOMEN: Positive bowel sounds x 4. Normal tympanic percussion. Soft, nontender, without masses or organomegaly. Horan sign negative. No guarding or rebound tenderness. No CVA tenderness MUSCULOSKELETAL: No muscle atrophy, erythema, or edema noted. NEURO: Patient was alert and oriented to person place and time. Normal sensation to light and sharp touch. No focal neurological deficits. Course Administered Medications Morphine Sulfate (Morphine Sulfate) 2 mg IV Q4 PRN PRN Reason: Pain Stop: 06/29/18 03:32 Last Admin: 06/15/18 04:06 Dose: 2 mg Documented by: [id number] Rivaroxaban (Xarelto) 15 mg PO BID [facility] Stop: 07/15/18 03:59 Last Admin: 06/15/18 04:06 Dose: 15 mg Documented by: [id number] Discontinued Medications Azithromycin (Zithromax) 500 mg PO NOW ONE Stop: 06/15/18 00:15 Last Admin: 06/15/18 01:01 Dose: 500 mg Documented by: [id number] Heparin Sodium (Porcine) (Heparin Sodium (Porcine)) Confirm Administered Dose 10,000 units .ROUTE .STK-MED ONE Stop: 06/15/18 02:29 Last Admin: 06/15/18 02:29 Dose: 5,000 units Documented by: [id number] Cosigned by: [id number] Heparin Sodium/Dextrose () 1 ea IV NOW STA; Protocol Stop: 06/15/18 00:56 Last Admin: 06/15/18 02:28 Dose: 1 ea Documented by: [id number] Heparin Sodium/Dextrose (Heparin Sodium/Dextrose) Confirm Administered Dose 25,000 units IV .STK-MED ONE Stop: 06/15/18 02:29 Last Admin: 06/15/18 02:29 Dose: 1,700 units Documented by: [id number] Cosigned by: [id number] Sodium Chloride (Nss 1000ml) 1,000 mls @ 999 mls/hr IV .Q1H1M [facility] Stop: 06/14/18 23:30 Last Infusion: 03/16/19 23:51 Dose: 0 mls/hr Documented by: [id number] Admin: 06/14/18 22:35 Dose: 999 mls/hr Documented by: [id number] Ceftriaxone Sodium (Rocephin) 1,000 mg in 50 mls @ 100 mls/hr IV NOW STA Stop: 06/15/18 00:43 Last Infusion: 06/15/18 01:27 Dose: 0 mls/hr Documented by: [id number] Admin: 06/15/18 01:01 Dose: 100 mls/hr Documented by: [id number] Ioversol (Optiray 320 125ml) 110 ml IV ONCE PRN PRN Reason: Interaction Checking Stop: 06/18/18 23:54 Last Admin: 06/14/18 23:56 Dose: 110 ml Documented by: [id number] Miscellaneous (Stop Order) 1 ea N/A ONE ONE Stop: 06/15/18 04:01 Last Admin: 06/15/18 04:06 Dose: 1 ea Documented by: [id number] Morphine Sulfate (Morphine Sulfate) 4 mg IV NOW STA Stop: 06/14/18 22:18 Last Admin: 06/14/18 22:35 Dose: 4 mg Documented by: [id number] Ondansetron HCl (Zofran) 4 mg IV NOW STA Stop: 06/14/18 22:18 Last Admin: 06/14/18 22:35 Dose: 4 mg Documented by: [id number] Medical Decision Making Medical Records Attestation: I reviewed the patient's medical records. Home Medications Current Medication List: was personally reviewed by me Laboratory Data Attestation: I reviewed the patient's lab results. Result diagrams: 06/14/18 22:30 06/14/18 22:30 Lab Results 06/14/18 06/14/18 06/14/18 Range/Units 22:30 22:30 22:36 WBC 10.19 (4.8-10.8) K/uL RBC 5.03 (4.7-6.1) M/uL Hgb 15.7 (14.0-18.0) g/dL POC Hgb (14.0-18.0) g/dl Hct 43.1 (42-52) % POC Hct (42-52) % MCV 85.7 (80-100) fL MCH 31.2 (25-34) pg MCHC 36.4 H (32-36) g/dL RDW Std Deviation 37.8 (36.4-46.3) fL RDW Coeff of Bo 12.0 (11.5-14.5) % Plt Count 236 (130-400) K/uL MPV 9.7 (7.4-10.4) fL Immature Gran % (Auto) 0.2 % Neut % (Auto) 62.1 % Lymph % (Auto) 23.7 % [place] % (Auto) 13.4 % Eos % (Auto) 0.4 % Baso % (Auto) 0.2 % Immature Gran # (Auto) 0.02 (0.00-0.02) K/uL Neut # (Auto) 6.32 (1.4-6.5) K/uL Lymph # (Auto) 2.42 (1.2-3.4) K/uL [place] # (Auto) 1.37 H (0.11-0.59) K/uL Eos # (Auto) 0.04 (0-0.5) K/uL Baso # (Auto) 0.02 (0-0.2) K/uL POC D-Dimer > 450 H* (0-450) ng/mlFEU POC Sodium (135-144) mEq/L Sodium 138 (136-145) mmol/L POC Potassium (3.3-5.0) mEq/L Potassium 3.9 (3.5-5.1) mmol/L POC Chloride (101-112) mEq/L Chloride 107 (98-107) mmol/L Carbon Dioxide 23 (21-32) mmol/L POC Total CO2 (24-31) mEq/l Anion Gap 8.0 (3-11) POC Anion Gap (16-25) mmol/L POC BUN (7-18) mg/dl BUN 19 H (7-18) mg/dl Creatinine 0.98 (0.6-1.4) mg/dl POC Creatinine (0.6-1.3) mg/dl Est Cr Clr Drug Dosing 130.0 ml/min Est GFR ( Amer) 109.0 Est GFR (Non-Af Amer) 94.1 BUN/Creatinine Ratio 19.3 (10-20) Glucose 99 (70-99) mg/dl POC Glucose (other) (70-99) mg/dl POC Lactic Acid Toño (0.90-1.70) mmol/L Calcium 8.6 (8.5-10.1) mg/dl POC Ioniz Calcium Emilia (1.12-1.32) mmol/l Total Bilirubin 0.3 (0.2-1) mg/dl AST 21 (15-37) U/L ALT 39 (12-78) U/L Alkaline Phosphatase 59 (45-117) U/L Total Creatine Kinase 90 (39-308) U/L POC Troponin I < 0.03 (0-0.045) ng/ml Troponin I < 0.015 (0-0.045) ng/ml Total Protein 8.4 H (6.4-8.2) gm/dl Albumin 3.6 (3.4-5.0) gm/dl Globulin 4.8 H (2.5-4.0) gm/dl Albumin/Globulin Ratio 0.7 L (0.9-2) Lipase 126 (73-393) U/L 06/14/18 06/14/18 Range/Units 22:38 22:42 WBC (4.8-10.8) K/uL RBC (4.7-6.1) M/uL Hgb (14.0-18.0) g/dL POC Hgb 15.0 (14.0-18.0) g/dl Hct (42-52) % POC Hct 44 (42-52) % MCV (80-100) fL MCH (25-34) pg MCHC (32-36) g/dL RDW Std Deviation (36.4-46.3) fL RDW Coeff of Bo (11.5-14.5) % Plt Count (130-400) K/uL MPV (7.4-10.4) fL Immature Gran % (Auto) % Neut % (Auto) % Lymph % (Auto) % [place] % (Auto) % Eos % (Auto) % Baso % (Auto) % Immature Gran # (Auto) (0.00-0.02) K/uL Neut # (Auto) (1.4-6.5) K/uL Lymph # (Auto) (1.2-3.4) K/uL [place] # (Auto) (0.11-0.59) K/uL Eos # (Auto) (0-0.5) K/uL Baso # (Auto) (0-0.2) K/uL POC D-Dimer (0-450) ng/mlFEU POC Sodium 139 (135-144) mEq/L Sodium (136-145) mmol/L POC Potassium 3.9 (3.3-5.0) mEq/L Potassium (3.5-5.1) mmol/L POC Chloride 104 (101-112) mEq/L Chloride (98-107) mmol/L Carbon Dioxide (21-32) mmol/L POC Total CO2 21 L (24-31) mEq/l Anion Gap (3-11) POC Anion Gap 19.0 (16-25) mmol/L POC BUN 18 (7-18) mg/dl BUN (7-18) mg/dl Creatinine (0.6-1.4) mg/dl POC Creatinine 0.9 (0.6-1.3) mg/dl Est Cr Clr Drug Dosing ml/min Est GFR ( Amer) Est GFR (Non-Af Amer) BUN/Creatinine Ratio (10-20) Glucose (70-99) mg/dl POC Glucose (other) 104 H (70-99) mg/dl POC Lactic Acid Toño 0.91 (0.90-1.70) mmol/L Calcium (8.5-10.1) mg/dl POC Ioniz Calcium Emilia 1.16 (1.12-1.32) mmol/l Total Bilirubin (0.2-1) mg/dl AST (15-37) U/L ALT (12-78) U/L Alkaline Phosphatase (45-117) U/L Total Creatine Kinase (39-308) U/L POC Troponin I (0-0.045) ng/ml Troponin I (0-0.045) ng/ml Total Protein (6.4-8.2) gm/dl Albumin (3.4-5.0) gm/dl Globulin (2.5-4.0) gm/dl Albumin/Globulin Ratio (0.9-2) Lipase (73-393) U/L MDM Narrative Prior records/ancillary studies reviewed. Triage Nursing notes reviewed. The patient's history was concerning for back, flank and respiratory difficulties. Differential diagnosis: Etiologies such as infections, reactive airway disease, pneumonia, pneumothorax, COPD, CHF, cardiac ischemia, pulmonary embolism, musculoskeletal, gastrointestinal, as well as others were entertained. Physical examination: As above. ER treatment provided: Heparin with IV bolus On reassessment the patient felt better. Diagnostic interpretation by me: The electrocardiogram was right axis deviation,Normal sinus, normal intervals, no acute ST-T wave changes, rate of 103. Impression sinus tachycardia interpreted by myself The labs revealed elevated d-dimer. Negative troponin Imaging studies: CTA CHEST: Study is positive for small pulmonary embolus in the left lung base. Left pulmonary infarct. Trace left pleural effusion. Patchy consolidative atelectasis bilaterally Mild pneumonitis in the right upper lobe. Old granulomatous disease. Small hiatal hernia. Radiologist: Jacklyn Hill M.D. Study ready at 23:56 and initial results transmitted at 00:30 Consultation: A consultation was placed with Dr Salinas, hospitalist. The case was discussed and diagnostics were reviewed. The patient was evaluated in the ER for further treatment. This appears to be consistent with PE. Patient was started on heparin. He has had no recent GI bleeding. No recent head injury. Hypercoagulable workup was ordered. Medicine was consulted. They are requesting heparin. Patient is agreeable treatment plan of admission. by the evaluation outlined above emergent etiologies such as CHF, cardiac ischemia, reactive airway disease, pne umothorax, musculoskeletal, serious bacterial infections, as well as others were deemed relatively unlikely. The pt informed about the findings as listed above. All questions were answered and pleased with the treatment. Case reviewed with my attending The chart was completed utilizing [employer] Speech voice recognition software. Grammatical errors, random word insertions, pronoun errors, and incomplete sentences are an occassional consequence of this system due to software limitations, ambient noise, and hardware issues. Any formal questions or concerns about the content, text, or information contained within the body of this dictation should be directly addressed to the physician senior care assistant for clarification. Impression & Plan Pulmonary embolism Critical Care Time I have personally spent greater than 30 minutes of critical care time in the direct management of this patient. This includes bedside care, interpretation of diagnostic studies, and testing, discussion with consultants, patient, and family members, and other required patient management activities. This 30 girish dandy is in excess of all separately billable procedures. Critical Care Time: Yes Total Critical Care Time: 30 Discharge Plan Visit Data *Final* Discharge Date/Time: 06/15/18 02:42 Chief Complaint: Flank Pain Stated Complaint: SHOULDER AND KIDNEY PAIN, PINCHED NERVE ED Provider: Armaan Falcon ED Midlevel Provider: Hilaria Waller Discharge Problem: Pulmonary embolism Patient Disposition: Admitted As Inpatient Condition: Good Discharge Instructions Interventions: ED Discharge Assessment Last Done: 06/15/18 02:42
[2018-06-15] MEDS ORDERED: ACETAMINOPHEN 325 MG TAB PO PRN (05:40)
[2018-06-15] MEDS: MoRPHine SULFATE 4 MG/ML 1 ML CARP\\VIAL IV PRN ×4 (06:02→21:38)
--- NOTE | 2018-06-15 06:24 | CT Scan Report ---
CT ANGIOGRAM OF THE CHEST CLINICAL HISTORY: Atypical chest pain. Possible acute pulmonary embolus in. COMPARISON STUDY: Chest x-ray dated 06/14/2018 TECHNIQUE: Following the IV administration of 110 mL of Optiray-320, CT angiogram of the thorax was p erformed from the thoracic inlet to the lung bases utilizing the pulmonary embolus protocol. Images a re reviewed in the axial, sagittal, and coronal planes. IV contrast was administered without complica tion. MIP imaging was performed. A dose lowering technique was utilized adhering to the principles o f ALARA. CT DOSE: 529.30 mGy.cm FINDINGS: No pathologically enlarged axillary mediastinal or hilar lymph nodes were visualized. The ascending thoracic aorta measures 32 mm. Lower lobe pulmonary opacification is suboptimal. There is equivocal very small subsegmental pulmonar y artery filling defect within the left lower lobe. It is difficult to determine whether this is real or artifactual. Correlation with leg ultrasonography is recommended in follow-up. There is a trace left pleural effusion. There are groundglass and tree-in-bud opacities within the right middle lobe, likely infectious/infla mmatory. There are left basilar opacities, infarct versus infectious/inflammatory versus atelectasis. Right lower lobe and lingular opacities, are likely atelectatic. There are scattered calcified granu bela present. There is a 4 mm perifissural right middle lobe nodule. There is an azygos lobe. IMPRESSION: 1. Equivocal very small subsegmental left lower lobe pulmonary artery embolism. 2. Correlation with leg ultrasonography is recommended in follow-up 3. Trace left pleural effusion and left lower lobe airspace opacities which could represent a pulmona ry infarct, if the equivocal subsegmental left lower lobe pulmonary embolism represents a true findin g.. An infectious/inflammatory process could appear similar 4. Tree-in-bud opacities within the right middle lobe, likely infectious/inflammatory. Electronically signed by: Hamilton Romero M.D. 06/15/2018 6:22 AM
--- NOTE | 2018-06-15 07:02 | Ultrasound Report ---
US venous doppler LE BI CLINICAL HISTORY: Possible pulmonary embolism COMPARISON STUDY: No previous studies for comparison. FINDINGS: Real-time and color flow Doppler imaging were performed. Flow was seen within the femoral, popliteal and calf veins with no intraluminal thrombus demonstrated. The saphenous vein is patent. IMPRESSION: No evidence of lower extremity DVT. Electronically signed by: Hamilton Romero M.D. 06/15/2018 7:01 AM
[2018-06-15 08:46] LABS: Hematocrit (blood only) 41.7 % (42-52); Hemoglobin 14.7 g/dL (14.0-18.0); Mean Corpuscular Hgb Conc 35.3 g/dL (32-36); Mean Corpuscular Volume 86.9 fL (80-100); Mean Platelet Volume 9.8 fL (7.4-10.4); Platelet Count 233 K/uL (130-400); RDW Coefficient of Variation 12.2 % (11.5-14.5); RDW Standard Deviation 39.1 fL (36.4-46.3); White Blood Count 10.06 K/uL (4.8-10.8)
[2018-06-15] MEDS: PANTOprazole 40 MG TAB PO SCH (08:49)
[2018-06-15 09:11] LABS: BUN Creatinine Ratio 12.9 (10-20); Calcium 8.6 mg/dl (8.5-10.1); Creatinine Clr Calc Pharmacy 132.6 ml/min; Est GFR (African American) 111.8; Est GFR (Non-African American) 96.4; Potassium 3.8 mmol/L (3.5-5.1)
[2018-06-15] MEDS: CHOLESTYRAMINE LIGHT 4 GM PKT PO SCH (10:33)
--- NOTE | 2018-06-15 11:51 | Hospitalist Progress Note ---
Date of Service June 15, 2018 Assessment & Plan (1) Pleuritic chest pain: - Presented with left sided pleuritic chest pain; may be related to PE vs. pneumonia vs. other. - Chest CT showed questionable PE with pulmonary infarct and tree-in-bud opacities, concerning for infection/inflammation. - Doppler of bilat LE was negative. - Plan to repeat CT chest due to suboptimal study to evaluate for PE -- discussed with radiology. - Recent flu-like symptoms with concern for infection on CT chest -- will continue Ceftriaxone and Azithromycin for empiric coverage of PNA. - Morphine 4 mg IV q3hr prn pain -- may need to increase dose if tolerated for uncontrolled pain. - Started anticoagulation therapy as noted below for PE. (2) Pulmonary embolism: - Presented with acute pleuritic chest pain; recent h/o immobility due to being ill but does not have any other significant risk factors. - Had tachycardia with HR 90-100s at admission but reports he has baseline tachycardia. - D-dimer was >450 in the ER. - Chest CT showed very small subsegmental left lower lobe PE and left opacity that may represent pulmonary infarct vs. artifact. - Doppler bilat LE was negative for DVTs. - Started Xarelto 15 mg BID x 21 days then 20 mg PO daily (will need to hold home NSAIDs after discharge) - Lab studies to evaluate for underlying clotting disorder are all pending; strong possibility of factor V leiden mutation (strong family history) (3) Anxiety: - Long history of anxiety; has never been evaluated by psychiatry. - Started Hydroxyzine 50 mg Po q6hr prn anxiety. - Will need to follow up with PCP and psych. (4) GERD (gastroesophageal reflux disease): - Follows with GI for routine EGDs. - Continue PPI daily. (5) Family history of factor V deficiency: - Per. patient, he has family history of factor V mutation on his paternal side. - Factor V Leiden mutation is pending. (6) DVT prophylaxis: - Xarelto BID. Dispo: Med/surg with tele for IV pain control in setting of pleuritic chest pain; discharge pending improvement in pain control. Supervising Physician Co-Signing Physician Notes PA Supervision Note: I did not personally see or examine the patient today, but I verified all sepulveda points of CATHY Lyles's assessment and plan with the following exceptions/additions: Pt with recent flu like illness with being sedentary, followed by acute onset of left sided pleuritic chest pain. Overnight Rad read noted PE with pulm infarct. Our radiologist said equivocal small PE and repeat CT today with dfficulty seeing small PE due to consolidation which is likely PNA given flow grade fevers, etc. -continue abx for PNA -continue anticoagulation especially in light of strong +FH for Factor V Leiden def -recommend at least 3 months anticoagulation, f/u on hypercoagulable workup, and then see Hematology as outpt -continued care here with pain control, O2 as needed, anticoagulation -check ECHO to assess for cor pulmonale Subjective Pt. has ongoing left sided pain, extending from the left flank region to the left shoulder. Pain is severe, has required Morphine IV doses. C/o increased pain with breathing - likely pleuritic pain related to PE. Has a non-productive cough, denies sinus congestion, sinus headache, pharyngitis, SOB, fever/chills. He was ill prior to this admission with flu-like symptoms -- lasted ~4 days and symptoms resolved by Saturday. He denies recent travel, surgical procedures. His father many years ago but pt. does report that his paternal aunt told him he has a strong family history of factor V leiden deficiency on his paternal side. Review of Systems All systems reviewed & are unremarkable except as noted in HPI & below Constitutional: + weakness; no fever, no chills, no fatigue and no anorexia Ear, Nose, Mouth, Throat: no nasal congestion, no nasal discharge, no post nasal drip, no sinus pain/pressure and no sore throat Respiratory: + cough and + pain on inspiration; no chest congestion, no dyspnea, no dyspnea on exertion, no sputum production and no wheezing Cardiovascular: no chest pain, no palpitations, no lightheadedness, no syncope and no edema Gastrointestinal: no abdominal pain, no nausea, no vomiting, no constipation and no diarrhea/loose stools Genitourinary (Male): no difficulty urinating Musculoskeletal: + joint pain (left shoulder ) and + body aches (Pain radiating from left flank region to left shoulder. ) Allergy / Immunological: no rash Physical Exam Vital Signs (Past 24 Hours): Last Vital Signs Temp 36.6 C 06/15/18 11:38 Pulse 107 H 06/15/18 11:38 Resp 18 06/15/18 11:38 BP 129/84 06/15/18 11:38 Pulse Ox 92 06/15/18 11:38 Physical Exam: General: Resting comfortably in no apparent distress; A&OX3 HEENT: NC/AT; PERRLA with EOMI; [place] conjunctiva, MMM. Neck: Supple and nontender Cardiac: RRR w/o murmurs, gallops or rubs; S1 and S2 Lungs: CTA bilaterally Abdomen: Bowel normoactive X 4; Nontender to palpation Extremities: Warm. No edema present Neuro: No focal weakness Skin: No rash Results & Data Laboratory Results 06/15/18 06/15/18 06/15/18 Range/Units 08:19 08:19 01:11 WBC 10.06 (4.8-10.8) K/uL RBC 4.80 (4.7-6.1) M/uL Hgb 14.7 (14.0-18.0) g/dL POC Hgb (14.0-18.0) g/dl Hct 41.7 L (42-52) % POC Hct (42-52) % MCV 86.9 (80-100) fL MCH 30.6 (25-34) pg MCHC 35.3 (32-36) g/dL RDW Std Deviation 39.1 (36.4-46.3) fL RDW Coeff of Bo 12.2 (11.5-14.5) % Plt Count 233 (130-400) K/uL MPV 9.8 (7.4-10.4) fL Immature Gran % (Auto) % Neut % (Auto) % Lymph % (Auto) % Bea[place]gard % (Auto) % Eos % (Auto) % Baso % (Auto) % Immature Gran # (Auto) (0.00-0.02) K/uL Neut # (Auto) (1.4-6.5) K/uL Lymph # (Auto) (1.2-3.4) K/uL Bea[place]gard # (Auto) (0.11-0.59) K/uL Eos # (Auto) (0-0.5) K/uL Baso # (Auto) (0-0.2) K/uL POC D-Dimer (0-450) ng/mlFEU Hexagonal Phase Confirm Protein C Activity Protein S Activity Antithrombin III Activ Factor V Leiden Mutat Factor V Leiden Interp Fact V Leiden Review By POC Sodium (135-144) mEq/L Sodium 137 (136-145) mmol/L POC Potassium (3.3-5.0) mEq/L Potassium 3.8 (3.5-5.1) mmol/L POC Chloride (101-112) mEq/L Chloride 103 (98-107) mmol/L Carbon Dioxide 28 (21-32) mmol/L POC Total CO2 (24-31) mEq/l Anion Gap 6.0 (3-11) POC Anion Gap (16-25) mmol/L POC BUN (7-18) mg/dl BUN 12 (7-18) mg/dl Creatinine 0.96 (0.6-1.4) mg/dl POC Creatinine (0.6-1.3) mg/dl Est Cr Clr Drug Dosing 132.6 ml/min Est GFR ( Amer) 111.8 Est GFR (Non-Af Amer) 96.4 BUN/Creatinine Ratio 12.9 (10-20) Glucose 113 H (70-99) mg/dl POC Glucose (other) (70-99) mg/dl POC Lactic Acid Toño (0.90-1.70) mmol/L Calcium 8.6 (8.5-10.1) mg/dl POC Ioniz Calcium Emilia (1.12-1.32) mmol/l Total Bilirubin (0.2-1) mg/dl AST (15-37) U/L ALT (12-78) U/L Alkaline Phosphatase (45-117) U/L Total Creatine Kinase (39-308) U/L POC Troponin I (0-0.045) ng/ml Troponin I (0-0.045) ng/ml Total Protein (6.4-8.2) gm/dl Albumin (3.4-5.0) gm/dl Globulin (2.5-4.0) gm/dl Albumin/Globulin Ratio (0.9-2) Lipase (73-393) U/L Homocysteine Pending Beta-2-GPI IgG Ab Beta-2-GPI IgA Ab Beta-2-GPI IgM Ab Anti-Cardiolipin IgG Ab Anti-Cardiolipin IgA Ab Anti-Cardiolipin IgM Ab Prothrombin Gene Mutate Prothromb Gene Comment Prothromb Reviewed By 03/17/19 03/16/19 03/16/19 Range/Units 01:11 22:42 22:38 WBC (4.8-10.8) K/uL RBC (4.7-6.1) M/uL Hgb (14.0-18.0) g/dL POC Hgb 15.0 (14.0-18.0) g/dl Hct (42-52) % POC Hct 44 (42-52) % MCV (80-100) fL MCH (25-34) pg MCHC (32-36) g/dL RDW Std Deviation (36.4-46.3) fL RDW Coeff of Bo (11.5-14.5) % Plt Count (130-400) K/uL MPV (7.4-10.4) fL Immature Gran % (Auto) % Neut % (Auto) % Lymph % (Auto) % Bea[place]gard % (Auto) % Eos % (Auto) % Baso % (Auto) % Immature Gran # (Auto) (0.00-0.02) K/uL Neut # (Auto) (1.4-6.5) K/uL Lymph # (Auto) (1.2-3.4) K/uL Bea[place]gard # (Auto) (0.11-0.59) K/uL Eos # (Auto) (0-0.5) K/uL Baso # (Auto) (0-0.2) K/uL POC D-Dimer (0-450) ng/mlFEU Hexagonal Phase Confirm Pending Protein C Activity Pending Protein S Activity Pending Antithrombin III Activ Pending Factor V Leiden Mutat Pending Factor V Leiden Interp Pending Fact V Leiden Review By Pending POC Sodium 139 (135-144) mEq/L Sodium (136-145) mmol/L POC Potassium 3.9 (3.3-5.0) mEq/L Potassium (3.5-5.1) mmol/L POC Chloride 104 (101-112) mEq/L Chloride (98-107) mmol/L Carbon Dioxide (21-32) mmol/L POC Total CO2 21 L (24-31) mEq/l Anion Gap (3-11) POC Anion Gap 19.0 (16-25) mmol/L POC BUN 18 (7-18) mg/dl BUN (7-18) mg/dl Creatinine (0.6-1.4) mg/dl POC Creatinine 0.9 (0.6-1.3) mg/dl Est Cr Clr Drug Dosing ml/min Est GFR ( Amer) Est GFR (Non-Af Amer) BUN/Creatinine Ratio (10-20) Glucose (70-99) mg/dl POC Glucose (other) 104 H (70-99) mg/dl POC Lactic Acid Toño 0.91 (0.90-1.70) mmol/L Calcium (8.5-10.1) mg/dl POC Ioniz Calcium Emilia 1.16 (1.12-1.32) mmol/l Total Bilirubin (0.2-1) mg/dl AST (15-37) U/L ALT (12-78) U/L Alkaline Phosphatase (45-117) U/L Total Creatine Kinase (39-308) U/L POC Troponin I (0-0.045) ng/ml Troponin I (0-0.045) ng/ml Total Protein (6.4-8.2) gm/dl Albumin (3.4-5.0) gm/dl Globulin (2.5-4.0) gm/dl Albumin/Globulin Ratio (0.9-2) Lipase (73-393) U/L Homocysteine Beta-2-GPI IgG Ab Pending Beta-2-GPI IgA Ab Pending Beta-2-GPI IgM Ab Pending Anti-Cardiolipin IgG Ab Pending Anti-Cardiolipin IgA Ab Pending Anti-Cardiolipin IgM Ab Pending Prothrombin Gene Mutate Pending Prothromb Gene Comment Pending Prothromb Reviewed By Pending 06/14/18 06/14/18 06/14/18 Range/Units 22:36 22:30 22:30 WBC 10.19 (4.8-10.8) K/uL RBC 5.03 (4.7-6.1) M/uL Hgb 15.7 (14.0-18.0) g/dL POC Hgb (14.0-18.0) g/dl Hct 43.1 (42-52) % POC Hct (42-52) % MCV 85.7 (80-100) fL MCH 31.2 (25-34) pg MCHC 36.4 H (32-36) g/dL RDW Std Deviation 37.8 (36.4-46.3) fL RDW Coeff of Bo 12.0 (11.5-14.5) % Plt Count 236 (130-400) K/uL MPV 9.7 (7.4-10.4) fL Immature Gran % (Auto) 0.2 % Neut % (Auto) 62.1 % Lymph % (Auto) 23.7 % Beauregard % (Auto) 13.4 % Eos % (Auto) 0.4 % Baso % (Auto) 0.2 % Immature Gran # (Auto) 0.02 (0.00-0.02) K/uL Neut # (Auto) 6.32 (1.4-6.5) K/uL Lymph # (Auto) 2.42 (1.2-3.4) K/uL Bea[place]gard # (Auto) 1.37 H (0.11-0.59) K/uL Eos # (Auto) 0.04 (0-0.5) K/uL Baso # (Auto) 0.02 (0-0.2) K/uL POC D-Dimer > 450 H* (0-450) ng/mlFEU Hexagonal Phase Confirm Protein C Activity Protein S Activity Antithrombin III Activ Factor V Leiden Mutat Factor V Leiden Interp Fact V Leiden Review By POC Sodium (135-144) mEq/L Sodium 138 (136-145) mmol/L POC Potassium (3.3-5.0) mEq/L Potassium 3.9 (3.5-5.1) mmol/L POC Chloride (101-112) mEq/L Chloride 107 (98-107) mmol/L Carbon Dioxide 23 (21-32) mmol/L POC Total CO2 (24-31) mEq/l Anion Gap 8.0 (3-11) POC Anion Gap (16-25) mmol/L POC BUN (7-18) mg/dl BUN 19 H (7-18) mg/dl Creatinine 0.98 (0.6-1.4) mg/dl POC Creatinine (0.6-1.3) mg/dl Est Cr Clr Drug Dosing 130.0 ml/min Est GFR ( Amer) 109.0 Est GFR (Non-Af Amer) 94.1 BUN/Creatinine Ratio 19.3 (10-20) Glucose 99 (70-99) mg/dl POC Glucose (other) (70-99) mg/dl POC Lactic Acid Toño (0.90-1.70) mmol/L Calcium 8.6 (8.5-10.1) mg/dl POC Ioniz Calcium Emilia (1.12-1.32) mmol/l Total Bilirubin 0.3 (0.2-1) mg/dl AST 21 (15-37) U/L ALT 39 (12-78) U/L Alkaline Phosphatase 59 (45-117) U/L Total Creatine Kinase 90 (39-308) U/L POC Troponin I < 0.03 (0-0.045) ng/ml Troponin I < 0.015 (0-0.045) ng/ml Total Protein 8.4 H (6.4-8.2) gm/dl Albumin 3.6 (3.4-5.0) gm/dl Globulin 4.8 H (2.5-4.0) gm/dl Albumin/Globulin Ratio 0.7 L (0.9-2) Lipase 126 (73-393) U/L Homocysteine Beta-2-GPI IgG Ab Beta-2-GPI IgA Ab Beta-2-GPI IgM Ab Anti-Cardiolipin IgG Ab Anti-Cardiolipin IgA Ab Anti-Cardiolipin IgM Ab Prothrombin Gene Mutate Prothromb Gene Comment Prothromb Reviewed By (1) Pulmonary embolism Acute cor pulmonale presence: without acute cor pulmonale Chronicity: acute Pulmonary embolism type: unspecified Qualified Code(s): I26.99 - Other pulmonary embolism without acute cor pulmonale (2) GERD (gastroesophageal reflux disease) Esophagitis presence: with esophagitis Qualified Code(s): K21.0 - Gastro- esophageal reflux disease with esophagitis
[2018-06-15] MEDS ORDERED: OXYCODONE HCL IR 5 MG TAB (IMMEDIATE RELEASE) PO PRN (15:22)
[2018-06-15] MEDS ORDERED: OPTIRAY 320 125ml IV PRN (16:44)
--- NOTE | 2018-06-15 17:09 | CT Scan Report ---
CT ANGIOGRAM OF THE CHEST CLINICAL HISTORY: Equivocal pulmonary embolism. FOLLOW-UP EXAMINATION. Shortness of breath, pleuritic left-sided chest pain. Pleural effusion. COMPARISON STUDY: 06/14/2018 TECHNIQUE: Following the IV administration of 113 mL of Optiray-320, CT angiogram of the thorax was p erformed from the thoracic inlet to the lung bases utilizing the pulmonary embolus protocol. Images a re reviewed in the axial, sagittal, and coronal planes. IV contrast was administered without complica tion. MIP imaging was performed. A dose lowering technique was utilized adhering to the principles o f ALARA. CT DOSE: 695.13 mGy.cm FINDINGS: No pathologically enlarged axillary mediastinal or hilar lymph nodes were visualized. There was no evidence of thoracic aortic dilatation. No definite pulmonary artery filling defects are visualized. Evaluation of subsegmental left lower lo be point artery branches is difficult due to the left lower lobe pulmonary consolidation. There are small left pleural effusion. There are progressive left lower lobe consolidative changes. Dependent right basilar airspace opaciti es are likely atelectatic. There is an azygos fissure. There is fluid within distal esophagus. There is a small hiatal hernia. IMPRESSION: 1. Slight increase in the size of the small left pleural effusion 2. Slight progression in the left lower lobe consolidative change 3. Dependent right lower lobe airspace opacities likely atelectatic 4. No definite evidence of acute pulmonary embolism. Evaluation of the subsegmental left lower lobe p ulmonary artery branches is difficult due to parenchymal consolidation Electronically signed by: Hamilton Romero M.D. 06/15/2018 5:08 PM
[2018-06-15] MEDS ORDERED: AZITHROMYCIN 250 MG TAB PO SCH (21:00)
[2018-06-15] MEDS ORDERED: cefTRIAXone SODIUM 1,000 MG in DEXTROSE 5% 50 ML IV SCH (22:00)
[2018-06-16] MEDS: MoRPHine SULFATE 4 MG/ML 1 ML CARP\\VIAL IV PRN (00:44)
[2018-06-16 06:16] LABS: Hematocrit (blood only) 41.2 % (42-52); Hemoglobin 14.6 g/dL (14.0-18.0); Mean Corpuscular Hgb Conc 35.4 g/dL (32-36); Mean Corpuscular Volume 87.7 fL (80-100); Mean Platelet Volume 9.4 fL (7.4-10.4); Platelet Count 227 K/uL (130-400); RDW Standard Deviation 38.5 fL (36.4-46.3); White Blood Count 9.46 K/uL (4.8-10.8)
[2018-06-16 06:50] LABS: BUN Creatinine Ratio 8.2 (10-20); Blood Urea Nitrogen 7 mg/dl (7-18); Calcium 8.7 mg/dl (8.5-10.1); Carbon Dioxide 26 mmol/L (21-32); Chloride 100 mmol/L (98-107); Creatinine Clr Calc Pharmacy 139.9 ml/min; Est GFR (African American) 119.2; Est GFR (Non-African American) 102.9; Glucose 107 mg/dl (70-99); Potassium 3.7 mmol/L (3.5-5.1); Sodium 133 mmol/L (136-145)
[2018-06-16 06:55] LABS: Troponin I < 0.015 ng/ml (0-0.045)
[2018-06-16] MEDS: PANTOprazole 40 MG TAB PO SCH (07:59)
[2018-06-16] MEDS: RIVAROXABAN 15 MG TAB PO SCH (07:59)
[2018-06-16] MEDS: CHOLESTYRAMINE LIGHT 4 GM PKT PO SCH (11:03)
--- NOTE | 2018-06-16 21:11 | Discharge Summary ---
Date of Service June 16, 2018 Admission HPI Per Admitting Provider 42yo C male with history of GERD with Gustafson esophagus, SANTINO, presenting with acute left sided pleuritic CP that started suddenly on 06/14. Pain is mostly posterior thoracic, 10/10 in severity. CTA with left sided PE with pulmonary infarct. Also with small effusion and patchy infiltrate in RUL. Patient with no personal or family history of DVT/PE. No recent surgery or trauma. He was recently sick with a viral illness and reports spending a lot of time in bed. Presently he states that he feels very anxious. Also with left sided CP/pleuritic, unable to take full breaths secondary to pain. Also complaining of feeling dizzy and lightheaded which started yesterday as well. ER Course: Azithromycin, Ceftriaxone, Heparin gtt, Morphine 4mg IV, Zofran 4mg IV Principal Diagnosis Pneumonia with possible pulmonary embolism Discharge Exam Constitutional WD/WN, vitals as above Eyes EOM intact bilaterally; no conjunctival abnormality ENMT external ear and nose normal, oropharynx normal Neck trachea midline, no thyromegaly normal visual inspection Respiratory normal respiratory effort, lungs clear to auscultation no respiratory distress Cardiovascular RRR, no murmur, no edema Gastrointestinal (Abdomen) Inspection/Auscultation: abdomen normal to inspection; abdomen not distended Musculoskeletal no cyanosis or clubbing, extremities motor strength 5/5 Skin no rashes, warm and dry Neurologic moves all extremities and awake Psychiatric Orientation: alert, oriented to person and cooperative Discharge Data Allergies Allergy/AdvReac Type Severity Reaction Status Date / Time cat dander Allergy Intermediate RASH Unverified 06/14/18 22:57 No Known Drug Allergies Allergy Unknown . Verified 06/14/18 22:57 Ordered Studies 06/14/18 23:04 CT angio chest PE protocol Urgent 06/15/18 00:55 US venous doppler LE BI Urgent 06/15/18 16:14 CT angio chest PE protocol Routine Hospital Course (1) Pleuritic chest pain: - Presented with left sided pleuritic chest pain; may be related to PE vs. pneumonia. Chest CT on admission showed questionable PE with pulmonary infarct and tree-in-bud opacities, concerning for infection/inflammation. CT chest was then repeated and showed worse LLL consolidation, and again a possible PE, but hard to rule out. - Discharged on Xarelto and levofloxacin with close PCP follow up. (2) Pulmonary embolism: - Presented with acute pleuritic chest pain; recent h/o immobility due to being ill but did not have any other significant risk factors. - Had tachycardia with HR 90-100s at admission but reports he has baseline tachycardia. - D-dimer was >450 in the ER. - Chest CT showed very small subsegmental left lower lobe PE and left opacity that may represent pulmonary infarct vs. artifact. - Doppler bilat LE was negative for DVTs. - Started Xarelto 15 mg BID x 21 days then 20 mg PO daily - Lab studies to evaluate for underlying clotting disorder are all pending; strong possibility of factor V leiden mutation (strong family history) (3) Anxiety: - Long history of anxiety; has never been evaluated by psychiatry. - Will need to follow up with PCP and psych. (4) GERD (gastroesophageal reflux disease): - Follows with GI for routine EGDs. - Continue PPI daily. (5) Family history of factor V deficiency: - Per patient, he has family history of factor V mutation on his paternal side. - Factor V Leiden mutation is pending. Total Time Total Time Spent Total Time Spent (In Minutes): 35 Total Time Includes: Examination of the Patient, Discharge Planning and Medication Reconciliation Discharge Plan Discharge Items Patient Disposition: Home - Self-Care Reason For Visit: PE Discharge Diagnosis: Pulmonary embolism Condition: Good Discharge Goals: Decrease discomfort and Improve function Activity: Per 'Additional Instructions' section Activity Comment: Please take 1 week off from work and gradually return to normal activity. Bathing: No limitations Driving/Machine Use: No limitations Non-emergency contact: Primary Care Provider Call non-emergency contact if: you have any medication questions, your pain is not controlled, your pain is worsening and your temperature is above 101 Follow-up/Referrals: Elen Perez MD [Primary Care Provider] - 06/20/18 10:45 am (Please, follow up at Dr. Rowland's office with her associate, Dr. Fuller, on SaturdayJune 20 at 10:45 am. *If you need to change this appointment, call their office at [phone].) Diet: Regular Addtl Provider Instructions: Mr. Cuenca, You were admitted to the hospital with pain in your left side. We did a CT scan that was concerning for infection and a possible pulmonary embolism (blood clot in the lung). You were treated with antibiotics and a blood thinner to help improve the pneumonia and dissolve the blood clot. Please take the antibiotic (levofloxacin) this evening, and every evening until it is gone. Take the blood thinner tonight at the same time and then take it 2 times per day for 3 weeks. After 3 weeks, you switch to taking the blood thinner once every day. Please see your PCP this week to be sure the pain is improving. Prescriptions: New levofloxacin 500 mg tablet 500 mg PO DAILY 5 Days Qty: 5 RF: 0 Xarelto 15 mg (42)- 20 mg (9) tablets,dose pack See Rx Instructions .ROUTE .COMPLEX Qty: 51 RF: 0 Continued pantoprazole [Protonix] 40 mg tablet,delayed release (DR/EC) 40 mg PO DAILY RF: 0 cholestyramine (with sugar) 4 gram powder 1 dose PO DAILY RF: 0 Vicks DayQuil-NyQuil Cold-Flu 6.25-5-10-325 mg/15 mL Liquid, Sequential 1 dose PO UD PRN (Reason: cold & flu symptoms) RF: 0 ibuprofen 200 mg Tablet 600 mg PO QID PRN (Reason: Pain) RF: 0 Stand-Alone Forms: [facility] Discharge Orders: Discharge Order (Routine); Ordered 06/16/18 Ordered By: Laureano Muñoz Admission Data Admit Date/Time: 06/15/18 02:05 Attending Provider: Laureano Muñoz Admit Provider: Nenita Salinas Primary Care Provider: Elen Perez Service: Telemetry Medical Other Interventions: Discharge Summary Assessment (RN) Last Done: 06/16/18 16:39 DC Date/Time DO NOT enter until pt leaves facility: 06/16/18 17:47
[2018-06-19 15:07] LABS: Anti Cardiolipin Ab IgG <14 GPL (< = 14); Anti Cardiolipin Ab IgM <12 MPL (< = 12); Anti-Thrombin III Activity 107 % activity (80-120); B2 Glycoprotein IgA <9 SAU (<=20); B2 Glycoprotein IgG <9 SGU (<=20); B2 Glycoprotein IgM <9 SMU (<=20); Lupus Anticoagulant Weak Positive (Negative); Protein S Functional(Activity) 111 % (70-150)
== END 2018-06-16 17:47 | disposition home or self-care (01) | DRG 193 ==
LOC: ED 21:42 → 2N 06-15 02:05 → SUATTDRO 06-15 02:05 → 2N 06-15 02:42

== ENCOUNTER 2020-05-26 11:26 | Observation (INO) ==
[2020-05-26 12:01] LABS: Basophils # (auto) 0.02 K/uL (0-0.2); Basophils % (auto) 0.3 %; Eosinophils # (auto) 0.03 K/uL (0-0.5); Eosinophils % (auto) 0.4 %; Hemoglobin 16.4 g/dL (14.0-18.0); Immature Granulocytes # (auto) 0.01 K/uL (0.00-0.02); Immature Granulocytes % (auto) 0.1 %; Lymphocytes # (auto) 2.64 K/uL (1.2-3.4); Lymphocytes % (auto) 35.1 %; Mean Corpuscular Hemoglobin 31.5 pg (25-34); Mean Corpuscular Hgb Conc 35.7 g/dL (32-36); Mean Corpuscular Volume 88.5 fL (80-100); Mean Platelet Volume 10.3 fL (7.4-10.4); Monocytes # (auto) 0.51 K/uL (0.11-0.59); Monocytes % (auto) 6.8 %; Neutrophils # (auto) 4.31 K/uL (1.4-6.5); Neutrophils % (auto) 57.3 %; Platelet Count 203 K/uL (130-400); RDW Coefficient of Variation 12.1 % (11.5-14.5); RDW Standard Deviation 38.5 fL (36.4-46.3); White Blood Count 7.52 K/uL (4.8-10.8)
--- NOTE | 2020-05-26 12:08 | XRay Report ---
XR chest 1V portable HISTORY: 44 years-old Male Chest Pain . Acute atypical chest pain COMPARISON: Chest radiograph 12/20/2019, CTA chest 11/17/2018 TECHNIQUE: Portable AP view of the chest FINDINGS: Cardiac silhouette is upper limits of normal in size. No pneumothorax, pleural effusion, airspace con solidation or overt pulmonary edema. Bones of the chest appear grossly intact. Azygos lobe and fissur e. IMPRESSION: No acute process. ACT 112: Negative or not required by law. The above report was generated using voice recognition software. It may contain grammatical, syntax o r spelling errors. Electronically signed by: Maury Clayton M.D. 05/26/2020 12:06 PM
[2020-05-26 12:10] LABS: D Dimer 330 ug/L FEU (0-500)
[2020-05-26] MEDS ORDERED: NITROGLYCERIN 2% OINTMENT 30GM TUBE EXT STA (12:10)
[2020-05-26] MEDS ORDERED: ASPIRIN CHEW 324 MG PO STA (12:10)
[2020-05-26] MEDS ORDERED: METOPROLOL TARTRATE 1 MG/ML VIAL IV STA (12:10)
--- NOTE | 2020-05-26 12:16 | Emergency Department Note ---
Impression & Plan Precordial chest pain, Acute electrocardiogram changes ED Provider Note NAME: ANIL COURTNEY AGE: 44 SEX: M : 1975 ARRIVES VIA: Walk-In INFORMANT: [Patient] ED PROVIDER(S): [Bharathi Alston MD] CHIEF COMPLAINT: Chest pain HISTORY OF PRESENT ILLNESS: The patient is a 44-year-old male presents with about 2 hours of left-sided chest, shoulder and arm pain. He describes the pain as a tightness and an ache. It occurred while at work, he was not exerting himself. He feels mildly nauseated and mildly short of breath, no sweating. The patient describes the pain as a 2 or 3 on a scale of 1-10. The patient states that he has no known cardiac issues however, his father of a heart attack at age 42. Patient feels he may be suffering from anxiety as his dad years ago on this date, it is the anniversary of his father's . The patient does not smoke, he does not take any medication for high blood pressure, diabetes or high cholesterol. He states he has had a stress test years ago. Lately, he has not noticed any exertional chest pain or dyspnea. The patient's blood pressure was high when checked at work, his coworkers urged him to come to the ED for evaluation. REVIEW OF SYSTEMS: See HPI for pertinent positives and negatives. A total of ten systems were reviewed and were otherwise negative. PMHx/PSHx: See Below SOCIAL HISTORY: See Below. PHYSICAL EXAM: GENERAL: Patient is in no acute distress. HEENT: No acute trauma, normocephalic atraumatic, mucous membranes moist, no nasal congestion, no scleral icterus. NECK: No stridor, no adenopathy, no meningismus, trachea is midline. LUNGS: Clear to auscultation bilaterally, no wheeze, no rhonchi, breath sounds equal. Chest: Nontender chest wall. HEART: Without murmurs gallops or rubs, regular rate and rhythm. ABDOMEN: Soft, nontender, bowel sounds positive, no hernias, no peritonitis. EXTREMITIES: No cyanosis or edema, full range of motion of all the joints w ithout pain or difficulty, no signs for acute trauma. NEUROLOGIC: Oriented x 3, no acute motor or sensory deficits, no focal weakness. SKIN: No rash, no jaundice, no diaphoresis. DIFFERENTIAL DIAGNOSIS: Cardiac ischemia, aortic dissection, pulmonary embolism, pneumothorax, pn eumonia, pericarditis, myocarditis, esophageal rupture, GERD, cholecystitis, pancreatitis, musculoskeletal, as well as other pathologies. EMERGENCY DEPARTMENT COURSE/PROCEDURES: ECG: Indication was chest pain. The ECG shows a mild sinus tachycardia with a rate of 105. There are ST depressions and some T wave inversion in the inferior and lateral leads consistent with potential inferior lateral ischemia. No PVCs. The QTc is 420. Compared to an ECG from 20 December 2019, the ST and T wave changes are new. Repeat EKG: Indication was chest pain. The ECG shows a normal sinus rhythm with a rate of 76. There is no ST elevation, no PVCs. The QTc is 425. Compared to the ECG from earlier today, the T wave and ST changes have resolved. Continuous Cardiac Monitoring: An order was placed for continuous cardiac monitoring. The monitor shows a rate of 80 with normal sinus rhythm. MEDICAL DECISION MAKING: There is no leukocytosis or concerning anemia. There is a normal platelet count. No coagulopathy. D-dimer was negative. A negative D-dimer certainly makes PE less likely. There was no significant electrolyte abnormality or kidney failure. No concerning liver enzyme elevation. No evidence for pancreatitis. Patient appeared to be in a euthyroid state. Covid testing was negative. Chest x-ray did not show mediastinal widening, free air or pneumonia. ECG showed a sinus rhythm with some lateral ST and T wave changes. Cardiac enzyme testing x1 is not consistent with acute cardiac injury. Chest CT does not show PE, no evidence for mediastinal widening. The patient was aggressively managed. He received oral aspirin, IV Lopressor and nitroglycerin paste. He had resolution of his complaints with this medication. A repeat EKG showed normalization of his ECG. The patient does have cardiac risk factors and had some changes on his EKG. He improved with nitroglycerin, Lopressor and aspirin. I do think admission is warranted. I spoke with the patient. I spoke with cardiology, I spoke with case management. The on-call hospitalist has been consulted. Past Med/Surg History Medical History Anxiety Gustafson's esophagus without dysplasia Elevated blood pressure reading Elevated homocysteine GERD (gastroesophageal reflux disease) History of pulmonary embolism HLD (hyperlipidemia) SANTINO on CPAP Pulmonary embolism Tobacco use disorder Surgical History (Updated 05/26/20 @ 14:28 by Sylvia Swann PA-C) History of esophagogastroduodenoscopy (EGD) barretts esophagus w/o dysplasia S/P laparoscopic cholecystectomy Family History (Updated 05/26/20 @ 14:28 by Sylvia Swann PA-C) Father Coronary heart disease Myocardial infarction first @ 21, at 40 Grandfather (Paternal) Myocardial infarction, Onset Age: 30 Social History Smoking Status: Former smoker Tobacco Type: Smokeless Tobacco (Dip or Chew) Cigarettes Per Day: 100; Second Hand Exposure: No; Do You Dip or Chew Tobacco: Yes; Tobacco Cessation Education Requested by Patient: No Hx Alcohol Use: Yes Alcohol type: beer, wine and hard liquor Alcohol Intake Frequency: 2-4 x/Month Hx Substance Use: No Preferred Language: Greenlandic Communication Ability: Effective [employer] Sales Required: No Beliefs That Will Affect Care: None Current Living Situation: Alone current occupational status: employed 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 Verified 05/26/20 12:37 Home Meds Home Medications Medication Instructions Recorded Confirmed pantoprazole [Protonix] 40 mg PO DAILYBB 01/28/18 05/26/20 ibuprofen 600 mg PO Q6H PRN 05/26/20 05/26/20 Results & Data (ED) Vital Signs Vital Signs - 24 hr 05/26/20 11:30 05/26/20 11:40 05/26/20 11:51 Temperature 36.6 C Temperature Source Temporal Artery Scan Pulse Rate 105 H Pulse Rate from SpO2 Sensor Respiratory Rate 18 Respiratory Effort / Characteristics Non-Labored Spontaneous Respiratory Depth Normal Blood Pressure 146/97 H Blood Pressure Mean 113 Blood Pressure Position Sitting Pulse Oximetry 98 Oxygen Delivery Method Room Air Room Air Room Air Sepsis Recent Fever Within 48 Hours No Sepsis New/Unexplained Change in Mental Status No Sepsis Action Taken by Nursing No Action Required 05/26/20 12:00 05/26/20 12:30 05/26/20 13:00 Temperature Temperature Source Pulse Rate 98 H 80 Pulse Rate from SpO2 Sensor 98 H 80 79 Respiratory Rate 25 H 12 25 H Respiratory Effort / Characteristics Respiratory Depth Blood Pressure 143/101 H 131/85 116/84 Blood Pressure Mean 115 100 94 Blood Pressure Position Pulse Oximetry 96 97 97 Oxygen Delivery Method Room Air Room Air Room Air Sepsis Recent Fever Within 48 Hours Sepsis New/Unexplained Change in Mental Status Sepsis Action Taken by Nursing 05/26/20 13:30 Temperature Temperature Source Pulse Rate Pulse Rate from SpO2 Sensor 80 Respiratory Rate 17 Respiratory Effort / Characteristics Respiratory Depth Blood Pressure 125/82 Blood Pressure Mean 96 Blood Pressure Position Pulse Oximetry 96 Oxygen Delivery Method Room Air Sepsis Recent Fever Within 48 Hours Sepsis New/Unexplained Change in Mental Status Sepsis Action Taken by Long Term Medications Current Medication List: was personally reviewed by me Laboratory Data Attestation: I reviewed the patient's lab results. Result diagrams: 05/26/20 11:47 05/26/20 11:47 Lab Results 05/26/20 05/26/20 05/26/20 Range/Units 11:47 11:47 11:47 WBC 7.52 (4.8-10.8) K/uL RBC 5.20 (4.7-6.1) M/uL Hgb 16.4 (14.0-18.0) g/dL Hct 46.0 (42-52) % MCV 88.5 (80-100) fL MCH 31.5 (25-34) pg MCHC 35.7 (32-36) g/dL RDW Std Deviation 38.5 (36.4-46.3) fL RDW Coeff of Bo 12.1 (11.5-14.5) % Plt Count 203 (130-400) K/uL MPV 10.3 (7.4-10.4) fL Immature Gran % (Auto) 0.1 % Neut % (Auto) 57.3 % Lymph % (Auto) 35.1 % Barry % (Auto) 6.8 % Eos % (Auto) 0.4 % Baso % (Auto) 0.3 % Neut # (Auto) 4.31 (1.4-6.5) K/uL Lymph # (Auto) 2.64 (1.2-3.4) K/uL Barry # (Auto) 0.51 (0.11-0.59) K/uL Eos # (Auto) 0.03 (0-0.5) K/uL Baso # (Auto) 0.02 (0-0.2) K/uL Immature Gran # (Auto) 0.01 (0.00-0.02) K/uL PT (9.0-12.0) Seconds INR (0.9-1.1) APTT (21.0-31.0) Seconds PTT Ratio D-Dimer 330 (0-500) ug/L FEU Sodium 139 (136-145) mmol/L Potassium 3.9 (3.5-5.1) mmol/L Chloride 106 (98-107) mmol/L Carbon Dioxide 26 (21-32) mmol/L Anion Gap 7.0 (3-11) BUN 15 (7-18) mg/dl Creatinine 1.17 (0.6-1.4) mg/dl Est Cr Clr Drug Dosing 108.8 ml/min Est GFR ( Amer) 86.7 Est GFR (Non-Af Amer) 74.8 BUN/Creatinine Ratio 12.6 (10-20) Glucose 85 (70-99) mg/dl Calcium 9.7 (8.5-10.1) mg/dl Magnesium 2.0 (1.8-2.4) mg/dl Total Bilirubin 0.4 (0.2-1) mg/dl AST 31 (15-37) U/L ALT 68 (12-78) U/L Alkaline Phosphatase 53 (45-117) U/L Troponin I < 0.015 (0-0.045) ng/ml Total Protein 8.8 H (6.4-8.2) gm/dl Albumin 4.4 (3.4-5.0) gm/dl Globulin 4.4 H (2.5-4.0) gm/dl Albumin/Globulin Ratio 1.0 (0.9-2) Lipase 146 (73-393) U/L TSH 1.320 (0.300-4.500) uIu/ml 05/26/20 05/26/20 Range/Units 11:55 11:55 WBC (4.8-10.8) K/uL RBC (4.7-6.1) M/uL Hgb (14.0-18.0) g/dL Hct (42-52) % MCV (80-100) fL MCH (25-34) pg MCHC (32-36) g/dL RDW Std Deviation (36.4-46.3) fL RDW Coeff of Bo (11.5-14.5) % Plt Count (130-400) K/uL MPV (7.4-10.4) fL Immature Gran % (Auto) % Neut % (Auto) % Lymph % (Auto) % Barry % (Auto) % Eos % (Auto) % Baso % (Auto) % Neut # (Auto) (1.4-6.5) K/uL Lymph # (Auto) (1.2-3.4) K/uL Barry # (Auto) (0.11-0.59) K/uL Eos # (Auto) (0-0.5) K/uL Baso # (Auto) (0-0.2) K/uL Immature Gran # (Auto) (0.00-0.02) K/uL PT 9.8 (9.0-12.0) Seconds INR 1.0 (0.9-1.1) APTT 25.3 (21.0-31.0) Seconds PTT Ratio 1.0 D-Dimer (0-500) ug/L FEU Sodium (136-145) mmol/L Potassium (3.5-5.1) mmol/L Chloride (98-107) mmol/L Carbon Dioxide (21-32) mmol/L Anion Gap (3-11) BUN (7-18) mg/dl Creatinine (0.6-1.4) mg/dl Est Cr Clr Drug Dosing ml/min Est GFR ( Amer) Est GFR (Non-Af Amer) BUN/Creatinine Ratio (10-20) Glucose (70-99) mg/dl Calcium (8.5-10.1) mg/dl Magnesium Cancelled (1.8-2.4) mg/dl Total Bilirubin (0.2-1) mg/dl AST (15-37) U/L ALT (12-78) U/L Alkaline Phosphatase (45-117) U/L Troponin I (0-0.045) ng/ml Total Protein (6.4-8.2) gm/dl Albumin (3.4-5.0) gm/dl Globulin (2.5-4.0) gm/dl Albumin/Globulin Ratio (0.9-2) Lipase Cancelled (73-393) U/L TSH Cancelled (0.300-4.500) uIu/ml Administered Medications Acetaminophen (Acetaminophen 325 Mg Tab) 650 mg PO Q4H PRN PRN Reason: Pain or Fever Stop: 06/25/20 16:26 Last Admin: 05/26/20 19:32 Dose: 650 mg Documented by: [id number] Discontinued Medications Aspirin (Aspirin Chew 324 Mg) 324 mg PO NOW STA Stop: 05/26/20 12:11 Last Admin: 05/26/20 12:17 Dose: 324 mg Documented by: [id number] Ioversol (Optiray 320 125ml) 119 ml IV ONCE ONE Stop: 05/26/20 14:40 Last Admin: 05/26/20 14:39 Dose: 119 ml Documented by: [id number] Metoprolol Tartrate (Metoprolol Tartrate 1 Mg/Ml Vial) 5 mg IV NOW STA Stop: 05/26/20 12:11 Last Admin: 05/26/20 12:18 Dose: 5 mg Documented by: [id number] Nitroglycerin (Nitroglycerin 2% Ointment 30gm Tube) 1 inch EXT NOW STA Stop: 05/26/20 12:11 Last Admin: 05/26/20 12:18 Dose: 1 inch Documented by: [id number] Imaging Data Radiologist's Impression: XR chest 1V portable HISTORY: 44 years-old Male Chest Pain . Acute atypical chest pain COMPARISON: Chest radiograph 12/20/2019, CTA chest 11/17/2018 TECHNIQUE: Portable AP view of the chest FINDINGS: Cardiac silhouette is upper limits of normal in size. No pneumothorax, pleural effusion, airspace consolidation or overt pulmonary edema. Bones of the chest appear grossly intact. Azygos lobe and fissure. IMPRESSION: No acute process. CT ANGIOGRAM OF THE CHEST CLINICAL HISTORY: Atypical chest pain. Dyspnea. COMPARISON STUDY: Chest x-ray dated 05/26/2020. Chest CT dated 11/17/2018. TECHNIQUE: Following the IV administration of 119 cc of Optiray 320, CT angiogram of the chest was performed from the upper abdomen to the thoracic inlet utilizing the pulmonary embolus protocol. Images are reviewed in the axial, sagittal, and coronal planes. 3-D MIPS images are created and assessed. IV contrast was administered without complication. A dose lowering technique was utilized adhering to the principles of ALARA. CT DOSE: 709.80 mGy.cm FINDINGS: Thyroid: Imaged portions of the thyroid gland are normal in size and attenuation . Thoracic aorta: The thoracic aorta is normal in caliber and demonstrates standard 3-vessel arch anatomy. No dissection is seen. Pulmonary vasculature: The pulmonary trunk is normal in caliber. There are no filling defects identified in main, lobar, or segmental pulmonary branches to suggest pulmonary embolus. Heart: The heart is normal in size and without pericardial effusion. There are scattered coronary artery calcifications. Lungs and pleural spaces: An accessory azygous fissure is incidentally noted. The trachea and central airways are clear. There is no airspace consolidation or pleural effusion. Scattered calcified granulomas are observed. Mediastinum: There is no mediastinal lymphadenopathy. Shona: Clear. Axillae: There is no axillary lymphadenopathy. Upper abdomen: Cholecystectomy clips are noted. There is a small hiatal hernia. Skeletal structures: No lytic or blastic bony lesions are seen. IMPRESSION: 1. There is no evidence of pulmonary embolus in the main, lobar, or segmental pulmonary arteries. 2. There is no airspace consolidation or pleural effusion. 3. Additional findings as above. Discharge Plan Visit Data Chief Complaint: Chest Pain Stated Complaint: CHEST PAIN, ANXIETY ED Provider: Bharathi Alston Discharge Problem: Precordial chest pain, Acute electrocardiogram changes Patient Disposition: Admitted As Inpatient Condition: Good Discharge Instructions Interventions: ED Discharge Assessment Last Done: 05/26/20 16:07
[2020-05-26 12:19] LABS: Alanine Aminotransferase 68 U/L (12-78); Albumin Level 4.4 gm/dl (3.4-5.0); Aspartate Aminotransferase 31 U/L (15-37); BUN Creatinine Ratio 12.6 (10-20); Blood Urea Nitrogen 15 mg/dl (7-18); Calcium 9.7 mg/dl (8.5-10.1); Carbon Dioxide 26 mmol/L (21-32); Chloride 106 mmol/L (98-107); Creatinine Clr Calc Pharmacy 108.8 ml/min; Est GFR (African American) 86.7; Est GFR (Non-African American) 74.8; Glucose 85 mg/dl (70-99); Potassium 3.9 mmol/L (3.5-5.1); Sodium 139 mmol/L (136-145)
[2020-05-26 12:24] LABS: Alkaline Phosphatase 53 U/L (45-117); Bilirubin,Total 0.4 mg/dl (0.2-1); Globulin 4.4 gm/dl (2.5-4.0); Total Protein 8.8 gm/dl (6.4-8.2); Troponin I < 0.015 ng/ml (0-0.045)
[2020-05-26 12:37] LABS: Partial Thromboplastin Time 25.3 Seconds (21.0-31.0); Prothrombin Time 9.8 Seconds (9.0-12.0)
[2020-05-26 12:47] LABS: Lipase 146 U/L (73-393)
--- NOTE | 2020-05-26 13:43 | Cardiology Consultation ---
Date of Consultation May 26, 2020 Assessment & Plan (1) Family history of factor V deficiency: (2) GERD (gastroesophageal reflux disease): (3) Anxiety: (4) Pulmonary embolism: (5) Chest pain: This patient should be admitted for observation and additional cardiac markers drawn. He has a history of an unprovoked pulmonary emboli in 2019 and it looks like in his medical record that he may have a family history of Leyden factor V deficiency. It may be worthwhile repeating a CT to exclude pulmonary emboli. If that study is negative and his cardiac markers remain within normal limits then he can undergo an exercise stress echocardiogram in the morning. History of Present Illness History of Present Illness This is a 44-year-old male patient with no prior history of heart disease. The patient was in his usual state of health until this morning around 9 AM he developed some chest heaviness radiating into his left arm. He presented to the emergency department where he was noted to be hypertensive. He was treated with Nitropaste which improved his blood pressure as well as his symptoms. His EKG reveals a sinus rhythm and is within normal limits or at least is unchanged from a prior study performed in 2019. First set of cardiac markers are negative. Patient is a non-smoker. He denies a history of diabetes and he has never been treated for hypertension. He thinks he may have high cholesterol but is under no treatment. He has a family history of early heart disease with a father dying of a myocardial infarction at age 42. He has had no activity related chest pain recently. No unusual shortness of breath. It should be noted that this patient had a pulmonary emboli in 2019 that was unprovoked. He is currently not on anticoagulation. Allergies Allergy/AdvReac Type Severity Reaction Status Date / Time cat dander Allergy Intermediate RASH Unverified 05/26/20 12:37 No Known Drug Allergies Allergy Unknown . Verified 05/26/20 12:37 Home Medications Medication Instructions Recorded Confirmed Type pantoprazole [Protonix] 40 mg PO DAILYBB 01/28/18 05/26/20 History ibuprofen 600 mg PO Q6H PRN 05/26/20 05/26/20 History Patient History Medical History Anxiety Gustafson's esophagus without dysplasia Elevated blood pressure reading Elevated homocysteine GERD (gastroesophageal reflux disease) History of pulmonary embolism HLD (hyperlipidemia) SANTINO on CPAP Pulmonary embolism Tobacco use disorder Surgical History (Updated 05/26/20 @ 14:28 by Sylvia Swann PA-C) History of esophagogastroduodenoscopy (EGD) barretts esophagus w/o dysplasia S/P laparoscopic cholecystectomy Family History (Updated 05/26/20 @ 14:28 by Sylvia Swann PA-C) Father Coronary heart disease Myocardial infarction first @ 21, at 40 Grandfather (Paternal) Myocardial infarction, Onset Age: 30 Social History Smoking Status: Former smoker Tobacco Type: Smokeless Tobacco (Dip or Chew) Cigarettes Per Day: 100; Second Hand Exposure: No; Do You Dip or Chew Tobacco: Yes; Tobacco Cessation Education Requested by Patient: No Hx Alcohol Use: Yes Alcohol type: beer, wine and hard liquor Alcohol Intake Frequency: 2-4 x/Month Hx Substance Use: No Preferred Language: Frisian Communication Ability: Effective Piping Engineer Required: No Beliefs That Will Affect Care: None Current Living Situation: Alone current occupational status: employed 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 Physical Exam Physical Exam: General: no acute distress and stated age Head: normocephalic, no masses, lesions, tenderness or abnormalities Eyes: conjunctiva are pink and non-injected, sclera clear Neck: supple, no adenopathy, no bruits, normal jugular venous pulse, no hepatojugular reflux Chest: normal shape and normal respiratory effort Lungs: clear to auscultation and percussion Cardiac Exam: - regular rate & rhythm, no murmurs gallops or rubs - normal S1, normal S2 Pulses: 2(+) throughout Abdomen: abdomen soft, non-tender, no abnormal masses and no hepatosplenomegaly Musculoskeletal: no gait disturbance, no joint inflammation, no deforming arthritis Extremities: no edema and no cyanosis Neuro: grossly normal exam Results & Data ([place]) Vital Signs (Past 12 Hours) Vital Signs Temp Pulse Resp BP Pulse Ox 05/26/20 12:30 80 12 131/85 97 05/26/20 12:00 98 H 25 H 143/101 H 96 05/26/20 11:30 36.6 C 105 H 18 146/97 H 98 Laboratory Results Laboratory Results - last 24 hr 05/26/20 05/26/20 05/26/20 11:47 11:47 11:47 WBC 7.52 RBC 5.20 Hgb 16.4 Hct 46.0 MCV 88.5 MCH 31.5 MCHC 35.7 RDW Std Deviation 38.5 RDW Coeff of Bo 12.1 Plt Count 203 MPV 10.3 Immature Gran % (Auto) 0.1 Neut % (Auto) 57.3 Lymph % (Auto) 35.1 Arthur % (Auto) 6.8 Eos % (Auto) 0.4 Baso % (Auto) 0.3 Neut # (Auto) 4.31 Lymph # (Auto) 2.64 Arthur # (Auto) 0.51 Eos # (Auto) 0.03 Baso # (Auto) 0.02 Immature Gran # (Auto) 0.01 PT INR APTT PTT Ratio D-Dimer 330 Sodium 139 Potassium 3.9 Chloride 106 Carbon Dioxide 26 Anion Gap 7.0 BUN 15 Creatinine 1.17 Est Cr Clr Drug Dosing 108.8 Est GFR ( Amer) 86.7 Est GFR (Non-Af Amer) 74.8 BUN/Creatinine Ratio 12.6 Glucose 85 Calcium 9.7 Magnesium 2.0 Total Bilirubin 0.4 AST 31 ALT 68 Alkaline Phosphatase 53 Troponin I < 0.015 Total Protein 8.8 H Albumin 4.4 Globulin 4.4 H Albumin/Globulin Ratio 1.0 Lipase 146 TSH 1.320 05/26/20 05/26/20 11:55 11:55 WBC RBC Hgb Hct MCV MCH MCHC RDW Std Deviation RDW Coeff of Bo Plt Count MPV Immature Gran % (Auto) Neut % (Auto) Lymph % (Auto) Arthur % (Auto) Eos % (Auto) Baso % (Auto) Neut # (Auto) Lymph # (Auto) Arthur # (Auto) Eos # (Auto) Baso # (Auto) Immature Gran # (Auto) PT 9.8 INR 1.0 APTT 25.3 PTT Ratio 1.0 D-Dimer Sodium Potassium Chloride Carbon Dioxide Anion Gap BUN Creatinine Est Cr Clr Drug Dosing Est GFR ( Amer) Est GFR (Non-Af Amer) BUN/Creatinine Ratio Glucose Calcium Magnesium Cancelled Total Bilirubin AST ALT Alkaline Phosphatase Troponin I Total Protein Albumin Globulin Albumin/Globulin Ratio Lipase Cancelled TSH Cancelled Diagnostic Findings The patient's EKG reveals a sinus rhythm with T wave abnormalities in the inferior leads that are most likely a normal variant. The EKG is at least unchanged in the prior study December 2019. (1) Pulmonary embolism Acute cor pulmonale presence: without acute cor pulmonale Chronicity: acute Pulmonary embolism type: unspecified Qualified Code(s): I26.99 - Other pulmonary embolism without acute cor pulmonale (2) GERD (gastroesophageal reflux disease) Esophagitis presence: with esophagitis Qualified Code(s): K21.0 - Gastro- esophageal reflux disease with esophagitis
[2020-05-26] MEDS ORDERED: OPTIRAY 320 125ml IV ONE (14:39)
--- NOTE | 2020-05-26 14:44 | History & Physical Report ---
Date of Service May 26, 2020 Assessment & Plan (1) Chest pain: This is a 44-year-old male who has significant past medical history of hyperlipidemia, SANTINO noncompliant with CPAP, elevated homocystine level, history of unprovoked PE in 2019, Gustafson's esophagus without dysplasia, depression with anxiety, tobacco abuse, family history of ischemic heart disease who presents to ED secondary to chest pain x4 hours. Pt with ECG changes on arrival, inferior/lat t wave inversions. Resolved with ASA, IV Lopressor and NTG paste. Admit to PCU cycle troponins lipid panel, a1c in a.m. cardiology consulted - likely stress test in am. if trops negative monitor on tele (2) Elevated blood pressure reading: BP elevated in ED, may be situational or pain related need to monitor not on any oral antihypertensives (3) HLD (hyperlipidemia): fasting lipid panel in a.m. previously elevated total cholesterol in 2017 with total chol 282, LDL 222 Will start Statin today (4) Gustafson's esophagus without dysplasia: continue PPI (5) Tobacco use disorder: encourage tobacco cessation (6) SANTINO on CPAP: to be on CPAP at , 7 cwp will order, although pt non compliant at home (7) History of pulmonary embolism: unprovoked 2019 Per EPIC FH of factor V def, but pt denies hx of elevated homocysteine tx with SQ Lovenox for dvt prophylaxis PCP: RODOLFO FULL CODE DISPO: PCU, high risk for cardiac disease Pt was seen and examined in collaboration with Dr. Ball, please see addendum History of Present Illness Chief Complaint: Chest pain x 4 hours. Primary Care Provider: Elen Perez MD This is a 44-year-old male who has significant past medical history of hyperlipidemia, SANTINO noncompliant with CPAP, elevated homocystine level, history of unprovoked PE in 2019, Gustafson's esophagus without dysplasia, depression with anxiety, tobacco abuse, family history of ischemic heart disease who presents to ED secondary to chest pain x4 hours. Patient was at work when he developed substernal chest pain that radiated to left shoulder and down left arm. He thought initially symptoms were related to to anxiety as he is a very anxious person and gets chest pain frequently, but never goes down his left arm. He states he wakes up in the normal night daily with chest pain and related to his anxiety. He was very stressed out today as it was the anniversary of his father's passing secondary to massive CA in his 40s. During episode of chest pain he also felt lightheaded and nausea, but denied diaphoresis. When walking around he also felt SOB. Nothing made sx worse. Sx improved when presented to ED. Initially pain, 10/08. He was seen and evaluated by staff at present and his blood pressure was elevated 140s over 90s. He states typically his blood pressure is elevated. He does not take any medication for this. He states he has not been taking his medications and is not very compliant with them. Of significance when diagnosed with PE in 2019 he states he only took Xarelto for approximately 1 month. He stopped it on his own. Chest pain was present when seen and evaluated in ED. Initial EKG revealed T wave inversions inferior and laterally with concerns for ischemia. He received ASA, IV Lopressor and Nitropaste. Chest pain resolved. Repeat EKG revealed resolution of changes. He was seen and evaluated by cardiology in ED and recommended admission for likely stress test in a.m. He denies any recent illness and otherwise has felt well except for anxiety. He denies fever, chills, sweats, lightheadedness, dizziness, syncope, shortness of breath, cough, URI symptoms, nausea, vomiting, abdominal pain, change in bowel or urinary habits. Does use smokeless tobacco and chews about 1 can daily. Allergies Allergy/AdvReac Type Severity Reaction Status Date / Time cat dander Allergy Intermediate RASH Unverified 05/26/20 12:37 No Known Drug Allergies Allergy Unknown . Verified 05/26/20 12:37 Home Medications Medication Instructions Recorded Confirmed Type pantoprazole [Protonix] 40 mg PO DAILYBB 01/28/18 05/26/20 History ibuprofen 600 mg PO Q6H PRN 05/26/20 05/26/20 History Past Med/Surg History Medical History (Updated 05/26/20 @ 14:36 by Sylvia Swann PA-C) Anxiety Gustafson's esophagus without dysplasia Elevated blood pressure reading Elevated homocysteine GERD (gastroesophageal reflux disease) History of pulmonary embolism HLD (hyperlipidemia) SANTINO on CPAP Pulmonary embolism Tobacco use disorder Surgical History (Updated 05/26/20 @ 14:28 by Sylvia Swann PA-C) History of esophagogastroduodenoscopy (EGD) barretts esophagus w/o dysplasia S/P laparoscopic cholecystectomy Family History (Updated 05/26/20 @ 14:28 by Sylvia Swann PA-C) Father Coronary heart disease Myocardial infarction first @ , at 40 Grandfather (Paternal) Myocardial infarction, Onset Age: 30 Social History (Updated 05/26/20 @ 14:29 by Sylvia Swann PA-C) Smoking Status: Former smoker Tobacco Type: Smokeless Tobacco (Dip or Chew) Cigarettes Per Day: 100; Second Hand Exposure: No; Do You Dip or Chew Tobacco: Yes; Tobacco Cessation Education Requested by Patient: No Hx Alcohol Use: Yes Alcohol type: beer, wine and hard liquor Alcohol Intake Frequency: 2-4 x/Month Hx Substance Use: No Preferred Language: Hungarian Communication Ability: Effective Hris Coordinator Required: No Beliefs That Will Affect Care: None Current Living Situation: Alone current occupational status: employed 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 Other Information That Helps Us Care for You: No Feels Safe at Home: Yes Safety Concerns: Feels Safe At This Time Assistive Devices: None Review of Systems Review of Systems: All systems reviewed & are unremarkable except as noted in HPI & below Physical Exam Physical Exam: Constitutional: WD/WN, M, vitals as above, NAD, sitting up in bed, pleasant, conversing easily Head: Normocephalic, Atraumatic Eyes: PERRL, conjunctivae normal, anicteric sclerae ENMT: external ear and nose normal, oropharynx normal Neck: trachea midline, no thyromegaly normal visual inspection Respiratory: normal respiratory effort, lungs clear to auscultation, no wheeze, rales, rhonchi. Normal insp/exp effort, no accessory muscle use Cardiovascular: RRR, no murmur, no edema Vessels: no JVD or carotid bruit Chest: normal inspection of chest, nitro paste on LACW Abdomen: normal bowel sounds, soft, nontender, no hepatosplenomegaly Musculoskeletal: no cyanosis or clubbing, extremities motor strength 5/5 Skin: no rashes, warm and dry normal turgor Neurologic: PERRL, EOMI, accommodation nl, no face palsy, no dysarthria CN's II-XI intact bilaterally and moves all extremities Psychiatric: A+Ox3, euthymic affect : deferred Results & Data Results & Data ([facility]) Vital Signs (Past 12 Hours) Vital Signs Temp Pulse Resp BP Pulse Ox 05/26/20 14:00 15 138/87 98 05/26/20 13:30 17 125/82 96 05/26/20 13:00 25 H 116/84 97 05/26/20 12:30 80 12 131/85 97 05/26/20 12:00 98 H 25 H 143/101 H 96 05/26/20 11:30 36.6 C 105 H 18 146/97 H 98 Laboratory Results Short CBC 05/26/20 Range/Units 11:47 WBC 7.52 (4.8-10.8) K/uL Hgb 16.4 (14.0-18.0) g/dL Hct 46.0 (42-52) % Plt Count 203 (130-400) K/uL BMP 05/26/20 11:47 Sodium 139 Potassium 3.9 Chloride 106 Carbon Dioxide 26 BUN 15 Creatinine 1.17 Glucose 85 Calcium 9.7 Cardiac Enzymes 05/26/20 Range/Units 11:47 Troponin I < 0.015 (0-0.045) ng/ml Liver Function 05/26/20 Range/Units 11:47 Total Bilirubin 0.4 (0.2-1) mg/dl AST 31 (15-37) U/L ALT 68 (12-78) U/L Alkaline Phosphatase 53 (45-117) U/L Albumin 4.4 (3.4-5.0) gm/dl Diagnostic Findings CXR: IMPRESSION: No acute process. Medications Administered Discontinued Medications Aspirin (Aspirin Chew 324 Mg) 324 mg PO NOW STA Stop: 05/26/20 12:11 Last Admin: 05/26/20 12:17 Dose: 324 mg Documented by: [id number] Metoprolol Tartrate (Metoprolol Tartrate 1 Mg/Ml Vial) 5 mg IV NOW STA Stop: 05/26/20 12:11 Last Admin: 05/26/20 12:18 Dose: 5 mg Documented by: [id number] Nitroglycerin (Nitroglycerin 2% Ointment 30gm Tube) 1 inch EXT NOW STA Stop: 05/26/20 12:11 Last Admin: 05/26/20 12:18 Dose: 1 inch Documented by: [id number] ECG Indication: chest pain Rate (beats per minute): 105 Rhythm: sinus tachycardia Findings: + T-wave inversion (Inferior; lateral) Additional Comments: EKG #2 - post ASA, IV Lopressor, NTG paste 76, NSR, t wave inversions resolved COVID-19 Results Results COVID-19 Adm Lab Results: RBC 5.20 M/uL (4.7-6.1) 05/26/20 WBC 7.52 K/uL (4.8-10.8) 05/26/20 Hgb 16.4 g/dL (14.0-18.0) 05/26/20 Hct 46.0 % (42-52) 05/26/20 Plt Count 203 K/uL (130-400) 05/26/20 Neutrophils (%) (Auto) 57.3 % 05/26/20 Lymphocytes (%) (Auto) 35.1 % 05/26/20 Monocytes # (Auto) 0.51 K/uL (0.11-0.59) 05/26/20 Eosinophils # (Auto) 0.03 K/uL (0-0.5) 05/26/20 Immature Granulocyte % (Auto) 0.1 % 05/26/20 Neutrophils # (Auto) 4.31 K/uL (1.4-6.5) 05/26/20 Lymphocytes # (Auto) 2.64 K/uL (1.2-3.4) 05/26/20 Monocytes # (Auto) 0.51 K/uL (0.11-0.59) 05/26/20 Eosinophils # (Auto) 0.03 K/uL (0-0.5) 05/26/20 Basophils # (Auto) 0.02 K/uL (0-0.2) 05/26/20 Immature Granulocyte # (Auto) 0.01 K/uL (0.00-0.02) 05/26/20 Na 139 mmol/L (136-145) 05/26/20 K 3.9 mmol/L (3.5-5.1) 05/26/20 Cl 106 mmol/L (98-107) 05/26/20 CO2 26 mmol/L (21-32) 05/26/20 Anion Gap 7.0 (3-11) 05/26/20 BUN 15 mg/dl (7-18) 05/26/20 Creatinine 1.17 mg/dl (0.6-1.4) 05/26/20 BUN/Creatinine Ratio 12.6 (10-20) 05/26/20 Glucose Level 85 mg/dl (70-99) 05/26/20 Ca 9.7 mg/dl (8.5-10.1) 05/26/20 Total Bilirubin 0.4 mg/dl (0.2-1) 05/26/20 AST/SGOT 31 U/L (15-37) 05/26/20 ALT/SGPT 68 U/L (12-78) 05/26/20 Alkaline Phosphatase 53 U/L (45-117) 05/26/20 Total Protein 8.8 gm/dl (6.4-8.2) H 05/26/20 Albumin 4.4 gm/dl (3.4-5.0) 05/26/20 Globulin 4.4 gm/dl (2.5-4.0) H 05/26/20 Albumin/Globulin Ratio 1.0 (0.9-2) 05/26/20 Troponin I < 0.015 ng/ml (0-0.045) 05/26/20 D-Dimer 330 ug/L FEU (0-500) 05/26/20 PTT 25.3 Seconds (21.0-31.0) 05/26/20 INR 1.0 (0.9-1.1) 05/26/20 SARS-CoV-2, RNA, NAAT NEGATIVE (NEGATIVE) 05/26/20 Chest X-Ray 05/26/20 Code Status & VTE Plan Code Status Full Code VTE Prophylaxis Plan VTE Prophylaxis will be ordered: Yes Supervising Physician Co-Signing Physician Notes I have seen and examined the patient and have discussed the case with the provider above. I agree with the assessment and plan as stated. EKG normal sinus rhythm, patient continues to deny any pain. Reports a strong history of anxiety. Physical exam unremarkable and as above. Vitals are within normal limits with BP normalized at 132/84. Two troponins are negative so far this evening. Cardiology with plans for stress echo in am. DO Quinn
--- NOTE | 2020-05-26 14:52 | CT Scan Report ---
CT ANGIOGRAM OF THE CHEST CLINICAL HISTORY: Atypical chest pain. Dyspnea. COMPARISON STUDY: Chest x-ray dated 05/26/2020. Chest CT dated 11/17/2018. TECHNIQUE: Following the IV administration of 119 cc of Optiray 320, CT angiogram of the chest was pe rformed from the upper abdomen to the thoracic inlet utilizing the pulmonary embolus protocol. Images are reviewed in the axial, sagittal, and coronal planes. 3-D MIPS images are created and assessed. I V contrast was administered without complication. A dose lowering technique was utilized adhering to the principles of ALARA. CT DOSE: 709.80 mGy.cm FINDINGS: Thyroid: Imaged portions of the thyroid gland are normal in size and attenuation. Thoracic aorta: The thoracic aorta is normal in caliber and demonstrates standard 3-vessel arch anato my. No dissection is seen. Pulmonary vasculature: The pulmonary trunk is normal in caliber. There are no filling defects identif ied in main, lobar, or segmental pulmonary branches to suggest pulmonary embolus. Heart: The heart is normal in size and without pericardial effusion. There are scattered coronary art mayrann calcifications. Lungs and pleural spaces: An accessory azygous fissure is incidentally noted. The trachea and central airways are clear. There is no airspace consolidation or pleural effusion. Scattered calcified granu bela are observed. Mediastinum: There is no mediastinal lymphadenopathy. Shona: Clear. Axillae: There is no axillary lymphadenopathy. Upper abdomen: Cholecystectomy clips are noted. There is a small hiatal hernia. Skeletal structures: No lytic or blastic bony lesions are seen. IMPRESSION: 1. There is no evidence of pulmonary embolus in the main, lobar, or segmental pulmonary arteries. 2. There is no airspace consolidation or pleural effusion. 3. Additional findings as above. ACT 112: Negative or not required by law. Electronically signed by: Bharathi Garcia M.D. 05/26/2020 2:51 PM
[2020-05-26] MEDS ORDERED: NITROGLYCERIN SL 0.4 MG/TAB TAB SL PRN (16:27)
[2020-05-26] MEDS ORDERED: ALUMINUM/MAGNESIUM SUSP 30 ML UDC PO PRN (16:27)
[2020-05-26] MEDS ORDERED: ONDANSETRON INJ 2 MG/ML 2 ML VIAL IV PRN (16:27)
[2020-05-26] MEDS ORDERED: MAGNESIUM HYDROXIDE SUSP 30 ML UDC PO PRN (16:27)
[2020-05-26] MEDS ORDERED: ACETAMINOPHEN 325 MG TAB PO PRN (16:27)
[2020-05-26] MEDS ORDERED: POLYETHYLENE (MIRALAX) 17 GM PACK PO PRN (16:27)
--- NOTE | 2020-05-26 16:56 | Electrocardiogram Report ---
Test Reason : Blood Pressure : / mmHG Vent. Rate : 076 BPM Atrial Rate : 076 BPM P-R Int : 174 ms QRS Dur : 086 ms QT Int : 378 ms P-R-T Axes : 049 031 002 degrees QTc Int : 425 ms Normal sinus rhythm Normal ECG When compared with ECG of 26-MAY-2020 11:39, (unconfirmed) No significant change was found Confirmed by Ralph Joy ([id number]) on 05/26/2020 4:56:05 PM Referred By: REFERRED SELF Confirmed By:Moses Joy
--- NOTE | 2020-05-26 16:58 | Electrocardiogram Report ---
Test Reason : Blood Pressure : / mmHG Vent. Rate : 105 BPM Atrial Rate : 105 BPM P-R Int : 170 ms QRS Dur : 076 ms QT Int : 318 ms P-R-T Axes : 036 031 -33 degrees QTc Int : 420 ms Poor data quality, interpretation may be adversely affected Sinus tachycardia T wave abnormality, consider inferior ischemia Abnormal ECG When compared with ECG of 20-DEC-2019 15:02, No significant change was found Confirmed by Ralph Joy ([id number]) on 05/26/2020 4:57:39 PM Referred By: Confirmed By:Moses Joy
[2020-05-26] MEDS ORDERED: ENOXAPARIN INJ 40 MG/0.4 ML SYR SQ SCH (21:00)
[2020-05-27 06:12] LABS: Hematocrit (blood only) 42.9 % (42-52); Hemoglobin 15.3 g/dL (14.0-18.0); Mean Corpuscular Hemoglobin 31.2 pg (25-34); Mean Corpuscular Hgb Conc 35.7 g/dL (32-36); Mean Corpuscular Volume 87.4 fL (80-100); Mean Platelet Volume 9.2 fL (7.4-10.4); Platelet Count 260 K/uL (130-400); RDW Coefficient of Variation 11.9 % (11.5-14.5); RDW Standard Deviation 38.1 fL (36.4-46.3); Red Blood Count 4.91 M/uL (4.7-6.1); White Blood Count 7.59 K/uL (4.8-10.8)
[2020-05-27] MEDS ORDERED: PANTOprazole 40 MG TAB PO SCH (06:30)
[2020-05-27 06:43] LABS: BUN Creatinine Ratio 15.3 (10-20); Calcium 9.1 mg/dl (8.5-10.1); Creatinine Clr Calc Pharmacy 121.4 ml/min; Est GFR (African American) 101.2; Est GFR (Non-African American) 87.3
[2020-05-27 07:39] LABS: Estimated Average Glucose 117 mg/dl; Hemoglobin A1C 5.7 % (4.5-5.6)
[2020-05-27] MEDS ORDERED: ATORVASTATIN 40 MG TAB PO SCH (09:00)
--- NOTE | 2020-05-27 10:26 | Cardiology Progress Note ---
Date of Service May 27, 2020 Assessment & Plan (1) Family history of factor V deficiency: (2) GERD (gastroesophageal reflux disease): (3) Anxiety: (4) Pulmonary embolism: (5) Chest pain: The patient had a markedly elevated cholesterol and on his CT scan they noted some mild calcium in his coronary arteries. I do not believe he has been taking a statin at home. He is agreeable to be started and I note on his inpatient medications that he has been started on atorvastatin which should be continued as an outpatient. The patient can be discharged to outpatient follow- up with his primary care physician. He should have a lipid panel drawn in a month after starting the atorvastatin. Admission and Anticipated Discharge Date Admission Date: May 26, 2020 Subjective The patient was seen during his stress test. He completed 7 minutes of a Tom protocol without developing his symptoms. EKG was negative as well as a stress echocardiogram. He has no other complaints today. Review of Systems Review of Systems: All systems reviewed & are unremarkable except as noted in Subjective Physical Exam Physical Exam: General: no acute distress and stated age Head: normocephalic, no masses, lesions, tenderness or abnormalities Eyes: conjunctiva are pink and non-injected, sclera clear Neck: supple, no adenopathy, no bruits, normal jugular venous pulse, no hepatojugular reflux Chest: normal shape and normal respiratory effort Lungs: clear to auscultation and percussion Cardiac Exam: - regular rate & rhythm, no murmurs gallops or rubs - normal S1, normal S2 Pulses: 2(+) throughout Abdomen: abdomen soft, non-tender, no abnormal masses and no hepatosplenomegaly Musculoskeletal: no gait disturbance, no joint inflammation, no deforming arthritis Extremities: no edema and no cyanosis Neuro: grossly normal exam Results & Data ([facility]) Vital Signs (Past 12 Hours) Vital Signs Temp Pulse Pulse Resp BP Pulse Ox 05/27/20 08:02 36.9 C 76 16 122/88 96 05/27/20 08:00 74 05/27/20 03:52 36.6 C 89 18 117/77 93 05/27/20 00:23 36.7 C 87 18 110/70 93 Laboratory Results Laboratory Results - last 24 hr 05/26/20 05/26/20 05/26/20 11:47 11:47 11:47 WBC 7.52 RBC 5.20 Hgb 16.4 Hct 46.0 MCV 88.5 MCH 31.5 MCHC 35.7 RDW Std Deviation 38.5 RDW Coeff of Bo 12.1 Plt Count 203 MPV 10.3 Immature Gran % (Auto) 0.1 Neut % (Auto) 57.3 Lymph % (Auto) 35.1 [place] % (Auto) 6.8 Eos % (Auto) 0.4 Baso % (Auto) 0.3 Neut # (Auto) 4.31 Lymph # (Auto) 2.64 [place] # (Auto) 0.51 Eos # (Auto) 0.03 Baso # (Auto) 0.02 Immature Gran # (Auto) 0.01 PT INR APTT PTT Ratio D-Dimer 330 Sodium 139 Potassium 3.9 Chloride 106 Carbon Dioxide 26 Anion Gap 7.0 BUN 15 Creatinine 1.17 Est Cr Clr Drug Dosing 108.8 Est GFR ( Amer) 86.7 Est GFR (Non-Af Amer) 74.8 BUN/Creatinine Ratio 12.6 Glucose 85 Estimat Average Glucose Hemoglobin A1c Calcium 9.7 Magnesium 2.0 Total Bilirubin 0.4 AST 31 ALT 68 Alkaline Phosphatase 53 Troponin I < 0.015 Total Protein 8.8 H Albumin 4.4 Globulin 4.4 H Albumin/Globulin Ratio 1.0 Triglycerides Cholesterol LDL Cholesterol, Calc VLDL Cholesterol, Calc HDL Cholesterol Cholesterol/HDL Ratio Lipase 146 TSH 1.320 COVID-19 Eval Order SARS-CoV-2, RNA, NAAT 05/26/20 05/26/20 05/26/20 11:55 11:55 14:24 WBC RBC Hgb Hct MCV MCH MCHC RDW Std Deviation RDW Coeff of Bo Plt Count MPV Immature Gran % (Auto) Neut % (Auto) Lymph % (Auto) [place] % (Auto) Eos % (Auto) Baso % (Auto) Neut # (Auto) Lymph # (Auto) [place] # (Auto) Eos # (Auto) Baso # (Auto) Immature Gran # (Auto) PT 9.8 INR 1.0 APTT 25.3 PTT Ratio 1.0 D-Dimer Sodium Potassium Chloride Carbon Dioxide Anion Gap BUN Creatinine Est Cr Clr Drug Dosing Est GFR ( Amer) Est GFR (Non-Af Amer) BUN/Creatinine Ratio Glucose Estimat Average Glucose Hemoglobin A1c Calcium Magnesium Cancelled Total Bilirubin AST ALT Alkaline Phosphatase Troponin I Total Protein Albumin Globulin Albumin/Globulin Ratio Triglycerides Cholesterol LDL Cholesterol, Calc VLDL Cholesterol, Calc HDL Cholesterol Cholesterol/HDL Ratio Lipase Cancelled TSH Cancelled COVID-19 Eval [facility] SARS-CoV-2, RNA, NAAT 05/26/20 05/26/20 05/26/20 14:24 16:29 22:16 WBC RBC Hgb Hct MCV MCH MCHC RDW Std Deviation RDW Coeff of Bo Plt Count MPV Immature Gran % (Auto) Neut % (Auto) Lymph % (Auto) [place] % (Auto) Eos % (Auto) Baso % (Auto) Neut # (Auto) Lymph # (Auto) [place] # (Auto) Eos # (Auto) Baso # (Auto) Immature Gran # (Auto) PT INR APTT PTT Ratio D-Dimer Sodium Potassium Chloride Carbon Dioxide Anion Gap BUN Creatinine Est Cr Clr Drug Dosing Est GFR ( Amer) Est GFR (Non-Af Amer) BUN/Creatinine Ratio Glucose Estimat Average Glucose Hemoglobin A1c Calcium Magnesium Total Bilirubin AST ALT Alkaline Phosphatase Troponin I < 0.015 < 0.015 Total Protein Albumin Globulin Albumin/Globulin Ratio Triglycerides Cholesterol LDL Cholesterol, Calc VLDL Cholesterol, Calc HDL Cholesterol Cholesterol/HDL Ratio Lipase TSH COVID-19 Eval Order SARS-CoV-2, RNA, NAAT NEGATIVE 05/27/20 05/27/20 05/27/20 05:47 05:47 05:47 WBC 7.59 RBC 4.91 Hgb 15.3 Hct 42.9 MCV 87.4 MCH 31.2 MCHC 35.7 RDW Std Deviation 38.1 RDW Coeff of Bo 11.9 Plt Count 260 MPV 9.2 Immature Gran % (Auto) Neut % (Auto) Lymph % (Auto) [place] % (Auto) Eos % (Auto) Baso % (Auto) Neut # (Auto) Lymph # (Auto) [place] # (Auto) Eos # (Auto) Baso # (Auto) Immature Gran # (Auto) PT INR APTT PTT Ratio D-Dimer Sodium 138 Potassium 4.0 Chloride 105 Carbon Dioxide 26 Anion Gap 7.0 BUN 16 Creatinine 1.03 Est Cr Clr Drug Dosing 121.4 Est GFR ( Amer) 101.2 Est GFR (Non-Af Amer) 87.3 BUN/Creatinine Ratio 15.3 Glucose 93 Estimat Average Glucose 117 Hemoglobin A1c 5.7 H Calcium 9.1 Magnesium Total Bilirubin AST ALT Alkaline Phosphatase Troponin I Total Protein Albumin Globulin Albumin/Globulin Ratio Triglycerides 175 H Cholesterol 254 H LDL Cholesterol, Calc 181 VLDL Cholesterol, Calc 35 HDL Cholesterol 38 Cholesterol/HDL Ratio 7 Lipase TSH COVID-19 Eval Order SARS-CoV-2, RNA, NAAT Diagnostic Findings The patient had a negative exercise stress echocardiogram this morning which I supervised. Medications Administered Current Inpatient Medications Acetaminophen (Acetaminophen 325 Mg Tab) 650 mg PO Q4H PRN PRN Reason: Pain or Fever Stop: 06/25/20 16:26 Last Admin: 05/26/20 19:32 Dose: 650 mg Documented by: Al Hydrox/Mg Hydrox/Simethicone (Aluminum/Magnesium Susp 30 Ml Udc) 15 ml PO Q4H PRN PRN Reason: Dyspepsia Stop: 06/25/20 16:26 Atorvastatin Calcium (Atorvastatin 40 Mg Tab) 40 mg PO QAM [facility] Stop: 06/26/20 08:59 Last Admin: 05/27/20 08:23 Dose: Not Given Documented by: Enoxaparin Sodium (Enoxaparin Inj 40 Mg/0.4 Ml Syr) 40 mg SQ HS [facility] Stop: 06/25/20 20:59 Last Admin: 05/26/20 21:59 Dose: Not Given Documented by: Magnesium Hydroxide (Magnesium Hydroxide Susp 30 Ml Udc) 30 ml PO Q12H PRN PRN Reason: Constipation Stop: 06/25/20 16:26 Nitroglycerin (Nitroglycerin Sl 0.4 Mg/Tab Tab) 0.4 mg SL UD PRN PRN Reason: Chest Pain Stop: 06/25/20 16:26 Ondansetron HCl (Ondansetron Inj 2 Mg/Ml 2 Ml Vial) 4 mg IV Q6H PRN PRN Reason: Nausea Stop: 06/25/20 16:26 Pantoprazole Sodium (Pantoprazole 40 Mg Tab) 40 mg PO DAILYBB [facility] Stop: 06/26/20 06:29 Last Admin: 05/27/20 05:58 Dose: 40 mg Documented by: Polyethylene Glycol (Polyethylene (Miralax) 17 Gm Pack) 17 gm PO DAILY PRN PRN Reason: Constipation Stop: 06/25/20 16:26 (1) GERD (gastroesophageal reflux disease) Esophagitis presence: with esophagitis Qualified Code(s): K21.0 - Gastro- esophageal reflux disease with esophagitis (2) Pulmonary embolism Pulmonary embolism type: unspecified Chronicity: acute Acute cor pulmonale presence: without acute cor pulmonale Qualified Code(s): I26.99 - Other pulmonary embolism without acute cor pulmonale
--- NOTE | 2020-05-27 10:45 | Discharge Summary ---
Date of Service May 27, 2020 Admission HPI Per Admitting Provider This is a 44-year-old male who has significant past medical history of hyperlipidemia, SANTINO noncompliant with CPAP, elevated homocystine level, history of unprovoked PE in 2019, Gustafson's esophagus without dysplasia, depression with anxiety, tobacco abuse, family history of ischemic heart disease who presents to ED secondary to chest pain x4 hours. Patient was at work when he developed substernal chest pain that radiated to left shoulder and down left arm. He thought initially symptoms were related to to anxiety as he is a very anxious person and gets chest pain frequently, but never goes down his left arm. He states he wakes up in the normal night daily with chest pain and related to his anxiety. He was very stressed out today as it was the anniversary of his father's passing secondary to massive MD in his 40s. During episode of chest pain he also felt lightheaded and nausea, but denied diaphoresis. When walking around he also felt SOB. Nothing made sx worse. Sx improved when presented to ED. Initially pain, 10/08. He was seen and evaluated by staff at present and his blood pressure was elevated 140s over 90s. He states typically his blood pressure is elevated. He does not take any medication for this. He states he has not been taking his medications and is not very compliant with them. Of significance when diagnosed with PE in 2019 he states he only took Xarelto for approximately 1 month. He stopped it on his own. Chest pain was present when seen and evaluated in ED. Initial EKG revealed T wave inversions inferior and laterally with concerns for ischemia. He received ASA, IV Lopressor and Nitropaste. Chest pain resolved. Repeat EKG revealed resolution of changes. He was seen and evaluated by cardiology in ED and recommended admission for likely stress test in a.m. He denies any recent illness and otherwise has felt well except for anxiety. He denies fever, chills, sweats, lightheadedness, dizziness, syncope, shortness of breath, cough, URI symptoms, nausea, vomiting, abdominal pain, change in bowel or urinary habits. Does use smokeless tobacco and chews about 1 can daily. Principal Diagnosis Chest pain-resolved Hyperlipidemia Discharge Exam CONSTITUTIONAL: WNWD, vitals normal generally well-appearing EYES: normal conjunctivae, no scleral icterus ENT: external ear and nose normal, MMM RESPIRATORY: clear to auscultation bilaterally, no crackles, rales or wheezes, normal respiratory effort CARDIOVASCULAR: regular rate and rhythm, S1 and 2 heard without murmurs, gallops or rubs, no JVD, no peripheral edema GASTROINTESTINAL: soft, nontender, nondistended, no guarding. MUSCULOSKELETAL: strength 5/5 throughout, head is normocephalic and atraumatic, ambulatory SKIN: warm and dry NEUROLOGIC: CN 2-12 grossly intact, no sensory deficit, normal cognition, normal speech, no tremor. No gross focal deficits. PSYCHIATRIC: alert cooperative and oriented to person, place and time. Discharge Data Allergies Allergy/AdvReac Type Severity Reaction Status Date / Time cat dander Allergy Intermediate RASH Unverified 05/26/20 12:37 No Known Drug Allergies Allergy Unknown . 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 cc: ~ CT ANGIOGRAM OF THE CHEST CLINICAL HISTORY: Atypical chest pain. Dyspnea. COMPARISON STUDY: Chest x-ray dated 05/26/2020. Chest CT dated 11/17/2018. TECHNIQUE: Following the IV administration of 119 cc of Optiray 320, CT angiogram of the chest was performed from the upper abdomen to the thoracic inlet utilizing the pulmonary embolus protocol. Images are reviewed in the axial, sagittal, and coronal planes. 3-D MIPS images are created and assessed. IV contrast was administered without complication. A dose lowering technique was utilized adhering to the principles of ALARA. CT DOSE: 709.80 mGy.cm FINDINGS: Thyroid: Imaged portions of the thyroid gland are normal in size and attenuation. Thoracic aorta: The thoracic aorta is normal in caliber and demonstrates standard 3-vessel arch anatomy. No dissection is seen. Pulmonary vasculature: The pulmonary trunk is normal in caliber. There are no filling defects identified in main, lobar, or segmental pulmonary branches to suggest pulmonary embolus. Heart: The heart is normal in size and without pericardial effusion. There are scattered coronary artery calcifications. Lungs and pleural spaces: An accessory azygous fissure is incidentally noted. The trachea and central airways are clear. There is no airspace consolidation or pleural effusion. Scattered calcified granulomas are observed. Mediastinum: There is no mediastinal lymphadenopathy. Shona: Clear. Axillae: There is no axillary lymphadenopathy. Upper abdomen: Cholecystectomy clips are noted. There is a small hiatal hernia. Skeletal structures: No lytic or blastic bony lesions are seen. IMPRESSION: 1. There is no evidence of pulmonary embolus in the main, lobar, or segmental pulmonary arteries. 2. There is no airspace consolidation or pleural effusion. 3. Additional findings as above. ACT 112: Negative or not required by law. Electronically signed by: Bharathi Garcia M.D. 05/26/2020 2:51 PM Dictated: 05/26/201445Transcribed: 05/26/20 144 Hospital Course (1) Chest pain: (2) HLD (hyperlipidemia): (3) Gustafson's esophagus without dysplasia: (4) Tobacco use disorder: (5) SANTINO on CPAP: (6) History of pulmonary embolism: The patient is a 44-year-old man who presented with chest pain for 4 hours. On arrival to the ER an EKG revealed sinus rhythm with an inferior lateral T wave inversion presents which resolved with aspirin IV Lopressor and nitroglycerin paste to the chest, when his pain resolved. Cardiac enzyme were negative, trended overnight and his pain did not return. He was admitted to the hospitalist service and monitored on telemetry which revealed sinus rhythm overnight with a normal rate. He underwent a stress echocardiogram revealing a normal response to stress. There was no echocardiographic or EKG evidence of myocardial ischemia having achieved a heart rate adequate for diagnostic purposes. Initially on admission he underwent a chest CT with contrast which ruled out evidence of any pulmonary embolus. There was also no evidence of airspace consolidation or pleural effusion present. At time of discharge she was mentating and ambulating at baseline and tolerating p.o. He was hemodynamically stable and afebrile and oxygenating well on room air. He was discharged in stable condition with close primary care follow-up recommended. Based on his lipid panel and family history, he was started on Lipitor 40 daily. Repeat lipid panel is recommended in the next 1 to 3 months. Total Time Total Time Spent Total Time Spent (In Minutes): 60 Total Time Includes: Examination of the Patient, Discharge Planning, Medication Reconciliation and Communication With Other Providers Discharge Plan Discharge Items Patient Disposition: Home - Self-Care Reason For Visit: CHEST PAIN, ECG CHANGES Discharge Diagnosis: Chest pain-resolved Hyperlipidemia Condition on Discharge: Good Activity: Resume your previous activity Non-emergency contact: Primary Care Provider Call non-emergency contact if: you have any medication questions, your symptoms worsen, your pain is not controlled, your pain is worsening, your pain is unusual for you, your pain is concerning for you and you have a fever Follow-up/Referrals: Elen Perez MD [Primary Care Provider] - (Date & Time 05/31/2020 10:20 [facility] ) Diet: Regular Addtl Attending Provider Instructions: Please take all medications as instructed on discharge list below. It is recommended that you followup with your primary care physician within one week. You have been started on a cholesterol medication while hospitalized, and this was continued. New bloodwork will need to be performed in the next couple of months to monitor this. It was a pleasure taking care of you! Please call if you have any questions or problems. You can reach a [facility] hospitalist on duty at [facility] 24 hours a day by calling [phone]. Take care of yourself. Dawn Ball, [facility] Hospitalist Pending Studies at Discharge: No Stand-Alone Forms: My [facility] Medications and DC Order Prescriptions: New atorvastatin 40 mg Tablet 40 mg PO QAM Qty: 30 RF: 2 Continued pantoprazole [Protonix] 40 mg tablet,delayed release (DR/EC) 40 mg PO DAILYBB RF: 0 ibuprofen 200 mg Tablet 600 mg PO Q6H PRN (Reason: Headache) RF: 0 Discharge Orders: Discharge Order (Routine); Ordered 05/27/20 Ordered By: Dawn Ball Admission Data Admit Date/Time: 05/26/20 13:58 Attending Provider: Dawn Ball Admit Provider: Dawn Ball Primary Care Provider: Elen Perez Other Providers: Rajiv Harris ; Dawn Ball
--- NOTE | 2020-05-27 14:08 | Electrocardiogram Report ---
Test Reason : Blood Pressure : / mmHG Vent. Rate : 075 BPM Atrial Rate : 075 BPM P-R Int : 172 ms QRS Dur : 092 ms QT Int : 398 ms P-R-T Axes : 070 061 036 degrees QTc Int : 444 ms Normal sinus rhythm Normal ECG When compared with ECG of 26-MAY-2020 13:08, Nonspecific T wave abnormality has replaced inverted T waves in Inferior leads Confirmed by Ralph Joy ([id number]) on 05/27/2020 2:07:43 PM Referred By: REFERRED SELF Confirmed By:Moses Joy
== END 2020-05-27 13:40 | disposition home or self-care (01) ==
LOC: 2S 11:26 → ED 11:26 → 2S 16:07